=== PATIENT | female | born 1975 | race Caucasian/White ===

== ENCOUNTER 2017-05-11 23:41 | Inpatient (IN) | payer OTHER ==
[~2017-05-11] VITALS: Ht 175.3 cm; Wt 124.9 kg
[2017-05-11 23:39] VITALS: BP 178/112; PULSE 128; RESP 28; O2SAT 87
[2017-05-11] MEDS ORDERED: Propofol 10,000 mCg/mL 100 mL Inj ONE (23:50)
--- NOTE | 2017-05-11 23:56 | ED.REPORT ---
HPI-General Illness Date of Service May 11, 2017 ED Provider: Murali Moss MD A 41 year old female with a history of asthma and diabetes is brought to the ED via EMS due to respiratory distress. She was recently diagnosed with bronchitis and was placed on a course of antibiotics, which she completed. However the pt has been experiencing progressively worsening shortness of breath for three weeks, but this worsened acutely tonight. Paramedics found the pt tripoding with an oxygen saturation in the seventies, which was raised to 89% with albuterol treatment. Per , the pt has dilated, and lost over 100 pounds over the last several years. She has also been using her albuterol puffer liberally without a spacer in the last three weeks and resisting seeking medical care. Albuterol puffer in her possession in 2009. History is limited by pt condition. Nursing Notes Stated Complaint: SHORTNESS OF BREATH Chief Complaint: Respiratory Distress Nursing Notes Reviewed: Yes Allergies: Coded Allergies: Sulfa (Sulfonamide Antibiotics) (Verified Allergy, Unknown, 05/12/17) amoxicillin (Verified Allergy, Unknown, 05/12/17) clavulanic acid (Verified Allergy, Unknown, 05/12/17) General Time Seen by MD: 23:33 Chief Complaint Other (Respiratory distress) Hx Obtained From: Patient, EMS Arrived By: Ambulance Sudden in Onset?: No Recent Healthcare: No recent hospitalization Past Medical History Past Medical History asthma Reports: Diabetes mellitus Reports: Morbid Obesity Past Surgical History none reported Smoking History Never Smoker Social History Other Social History: Good social support, Ambulatory Status Independent Review of Systems Unable to Obtain ROS Patient condition Physical Exam Vital Signs Vital Signs Date Time Temp Pulse Resp B/P Pulse Ox O2 Delivery O2 Flow Rate FiO2 05/12/17 01:05 119 22 79/34 94 ET Tube 05/12/17 00:50 120 19 81/46 94 ET Tube 05/12/17 00:47 98 05/12/17 00:15 108 18 198/142 94 ET Tube 05/12/17 00:05 94 24 180/146 94 Room Air 05/11/17 23:39 37.3 128 28 178/112 87 BiPAP Initial VS: Reviewed General/Constitutional: Awake, Alert Head / Eyes: Atraumatic, Normocephalic, PERRL, EOMI ENT: Atraumatic, Airway patent, Mucous membranes moist Neck: Atraumatic, Supple, Full range of motion Respiratory / Chest: Atraumatic, Breath sounds = bilat tripoding with oxygen saturation in the mid seventies severe respiratory distress Cardiovascular: Heart rate NL, Regular rhythm, Heart sounds NL Abdomen: Atraumatic, Soft, Non-tender Back: Atraumatic, Full range of motion Upper Extremities Upper Extremity / MS: Atraumatic, Full range of motion Lower Extremity / Pelvis / MS: Atraumatic, Full range of motion Skin: Atraumatic, Color NL, No rash, Warm diaphoretic Neurologic: Oriented X3, Speech NL, No motor deficits, No sensory deficits Psychiatric: Affect NL Abnormal Mood/Affect: Positive: Anxious Interpretation & Diagnostics Lab Results Interpretation Result Diagram: 05/12/17 0335 05/12/17 0335 Test 05/12/17 00:09 Prothrombin Time 11.0sec (8.1-12.5) Prothromb Time International Ratio 1.03ratio Activated Partial Thromboplast Time 26.6sec (22.8-33.0) Lactic Acid Level 1.8mmol/L (0.4-2.0) Magnesium Level 1.8mg/dL (1.6-2.6) Troponin T 0.010ug/L (0.0-0.011) Pro-B-Type Natriuretic Peptide 1198pg/mL (0-130) Procalcitonin 0.02ng/mL (0.00-0.08) ECG Interpretation ECG Interpretation: sinus tachycardia with a rate of 103 poor R wave progression possible old anterior wave NE Time: 00:11 Interpreted by: ED physician X-Ray Chest Interpretation Chest Xray Interpretation: diffuse increased interstitial markings fluid in fissure suggestive of either fluid overload or viral pneumonitis Interpretation / Wet Read by: Wet read ED physician Procedures Intubation Intubation Procedure: 7.5 tube Time: 23:48 Procedure Performed by: ED physician, Allied health pract Consent / Setup / Site Prep: Consent from patient, Oxygen administered, Pulse oximeter applied, library monitor applied, Hand hygiene observed Patient Position: Head extended Blade / ET Tube / Route: Mac, ET tube cuffed, Route: oral Procedural Sedation/Analgesia: Sedation: Etomidate Neuromuscular Agent: Succinylcholine ET Confirmation: Direct visualization, BS equal, End tidal CO2 device, CXR, Rising O2 sat Secured / Marked: ET tube device, Tube marked at teeth Complications: None Post-Procedure: Condition improved, Tolerated procedure well, Patient stable Re-Eval/Medical Decision Med Decision/Clinical Course 41-year-old presents with a three week prodrome of her bronchitis being treated with albuterol and antibiotics. She is declined dramatically this evening with overt respiratory failure and hypoxemia. She was transported on CPAP but is still quite anxious and at maximal ventilatory effort, with pulse oxes still in the 80s at best. She required endotracheal intubation. I supervised the intubation in the emergency department, allowing the nuclear technologist from the field to do it under my direct supervision. Tube was placed and secured confirmed by end-tidal CO2 and by x-ray. Her white count is elevated, her x-ray shows increased interstitial markings more prominent on the right than the left, with a normal heart size. Possibility of an atypical pneumonitis versus CHF to be evaluated. Her troponin is initially negative. Her pro-B natruretic peptide is elevated but nonspecifically so. She is admitted out the ICU for further evaluation and management. ICU pneumonia protocol drugs begun with Levaquin and vancomycin and cefepime. Source of Hx: Family Time of Eval: 23:52 Re-Evaluation/Progress Note: Spoke with pt's and updated him on the situation. The need for admission is addressed. Time of Eval: 00:03 Patient Status: Condition improved Re-Evaluation/Progress Note: Pt rechecked, who is stable. Intubation is confirmed to be successful. Time of Eval: 01:21 Patient Status: Condition improved Re-Evaluation/Progress Note: Pt rechecked, whose blood pressure has improved. The diagnosis and plan for discharge are discussed. The pt's understands and agrees with the plan. All questions are addressed at this time. Consultation #1: Referral / Consult Name: Terry Cruz MD Consulted With: Hospitalist Call Returned at: 00:45 Information Resource Consultant: Agrees with eval, Agrees with plan, Accepts admit Note: Spoke with Dr. Cruz, hospitalist, regarding pt's case. Dr. Cruz agrees with the evaluation and agrees to admit the pt. Consultation #2: Call Returned at: 01:08 Information Resource Consultant: Agrees with eval, Agrees with plan Note: Spoke with Dr. Hemant Velarde, [facility], regarding pt's case. Dr. Morales agrees with the evaluation and agrees to accept pt's transfer if required. Counseled Regarding: Diagnosis, Lab results, Need for admission Discharge & Departure Primary Impression: Respiratory failure Chronicity: acute Respiratory failure complication: hypoxia Qualified Code : J96.01 - Acute respiratory failure with hypoxia Additional Impression: Acute interstitial pneumonitis Disposition: ADMITTED TO HOSPITAL Discharge Condition All VS Reviewed: Yes Condition: Stable Referrals: Augustin Zhang (PCP) Crit Care Except Billable Proc Time Spent: 30-74 minutes (forty-five minutes) Services Performed: Patient management by me, Time spent at bedside, Reviewing test results, Reviewing imaging, Discussing patient care, Documentation in record, Time with fam/surrogate Scribe Attestation Portions of this note were transcribed by Carmen Rubio. I, Dr. Moss personally performed the history, physical exam and medical decision-making; I reviewed and confirmed the accuracy of the information in the transcribed note. copies to: Augustin Zhang Christopher W MD May 11, 2017 23:56 CARMEN RUBIO May 12, 2017 00:02 Procedural Sedation/Analgesia: Sedation: Etomidate Neuromuscular Agent: Succinylcholine ET Confirmation: Direct visualization, BS equal, End tidal CO2 device, CXR, Rising O2 sat Secured / Marked: Tube marked at teeth Complications: None Post-Procedure: Condition improved, Tolerated procedure well, Patient stable Re-Eval/Medical Decision Source of Hx: Family Time of Eval: 23:52 Re-Evaluation/Progress Note: Spoke with pt's and updated him on the situation. The need for admission is addressed. Time of Eval: 00:03 Patient Status: Condition improved Re-Evaluation/Progress Note: Pt rechecked, who is stable. Intubation is confirmed to be successful. Time of Eval: 01:21 Patient Status: Condition improved Re-Evaluation/Progress Note: Pt rechecked, whose blood pressure has improved. The diagnosis and plan for discharge are discussed. The pt's understands and agrees with the plan. All questions are addressed at this time. Consultation #1: Referral / Consult Name: Terry Cruz MD Consulted With: Hospitalist Call Returned at: 00:45 Information Resource Consultant: Agrees with eval, Agrees with plan, Accepts admit Note: Spoke with Dr. Cruz, hospitalist, regarding pt's case. Dr. Cruz agrees with the evaluation and agrees to admit the pt. Consultation #2: Call Returned at: 01:08 Information Resource Consultant: Agrees with eval, Agrees with plan Note: Spoke with Dr. Hemant Velarde, [facility], regarding pt's case. Dr. Morales agrees with the evaluation and agrees to accept pt's transfer if required. Counseled Regarding: Diagnosis, Lab results, Need for admission Discharge & Departure Primary Impression: Respiratory failure Chronicity: acute Respiratory failure complication: hypoxia Qualified Code : J96.01 - Acute respiratory failure with hypoxia Disposition: ADMITTED TO HOSPITAL Discharge Condition All VS Reviewed: Yes Condition: Stable Referrals: Augustin Zhang (PCP) Crit Care Except Billable Proc Time Spent: 30-74 minutes Services Performed: Patient management by me, Time spent at bedside, Reviewing test results, Reviewing imaging, Discussing patient care, Documentation in record, Time with fam/surrogate Scribe Attestation Portions of this note were transcribed by Carmen Rubio. I, Dr. Moss personally performed the history, physical exam and medical decision-making; I reviewed and confirmed the accuracy of the information in the transcribed note. copies to: Augustin Zhang Christopher W MD May 11, 2017 23:56 CARMEN RUBIO May 12, 2017 00:02
[2017-05-12] VITALS (21 sets, daily range): BP systolic 79–198; BP diastolic 34–146; PULSE 94–120; RESP 18–28; O2SAT 94–100
[2017-05-12] MEDS ORDERED: Dexamethasone Inj 10 MG in 0.9% Sodium Chloride-Pha MIX 50 ML IV ONE ×2
[2017-05-12] MEDS ORDERED: Albuterol 2.5 mg/3 mL Inhalation Solution NEB ONE
[2017-05-12 00:13] LABS: BASOPHILS % (AUTO) 0.4 % (0-3); EOSINOPHILS % (AUTO) 2.2 % (0-5); MONOCYTES % (AUTO) 8.3 % (4-12); Mean Corpuscular Hemoglobin 31.7 pg (27.0-35.0); Mean Corpuscular Volume 88.8 fL (81-100); NEUTROPHILS % (AUTO) 61.4 % (40-74); Platelet Count 443 bil/L (150-400)
[2017-05-12] MEDS ORDERED: fentaNYL 2,500 mCg/250 mL IV Premix IV SCH (00:15)
[2017-05-12] MEDS ORDERED: levoFLOXacin Inj 750 MG in IV Premix 1 EACH IV ONE (00:20)
[2017-05-12] MEDS ORDERED: Vancomycin Dose per Pharmacist XX ONE (00:20)
[2017-05-12] MEDS ORDERED: Cefepime Inj 2,000 MG in Dextrose 5% Minibag Plus 100 ML IV ONE (00:20)
[2017-05-12] MEDS ORDERED: fentaNYL 2,500 mCg/250 mL 2,500 MCG in IV Premix 1 EACH IV SCH (00:25)
[2017-05-12] MEDS ORDERED: Vancomycin Inj 2,250 MG in 0.9% Sodium Chloride 500 ML IV ONE (00:25)
--- NOTE | 2017-05-12 00:31 | ABG ---
DateTimeAnalyzed 00:22:38 -_ pH ____7.211 - 7.350 7.450 pCO2 ___73.7__ -mmHg 35.0 45.0 pO2 133 -mmHg 69.0 116 HCO3- ___29.5__ -mmol/L 22.0 26.0 ABE ____0.7__ -mmol/L -2.0 2.0 tHb ___14.4__ -g/dL 12.0 18.0 O2Hb ___99.0__ -% COHb ____1.9__ -% 0.0 1.5 MetHb ____0.0__ -% 0.4 1.5 sO2 ___99.1__ -% FIO2 __100.0__ -% PEEP ____5.0__ -cmH2O Set_RR 18 -b/min Vt __530.0__ -L Drawn By AF - Date/Time Notified____ 00:31:00 -_ Spontaneous_RR 18 -b/min Oxygen Device 1 VENTILATOR - Notified By AF - Notified Whom ___DR. GUTHRIE - K+ ____3.8__ -mmol/L 3.5 5.0 tO2 ___19.9__ -Vol% OrderingPhysicianInitials CR - Guzman test _Positive -
[2017-05-12 00:39] LABS: TROPONIN T 0.01 ug/L (0.0-0.011)
[2017-05-12 00:49] LABS: INR 1.03 ratio
[2017-05-12 00:56] LABS: Magnesium 1.8 mg/dL (1.6-2.6)
[2017-05-12] MEDS: Propofol Inj 1,000,000 MCG in IV Premix 1 EACH IV SCH ×7 (01:01→20:11)
[2017-05-12] MEDS: fentaNYL 2,500 mCg/250 mL 2,500 MCG in IV Premix 1 EACH IV SCH (01:01)
[2017-05-12] MEDS ORDERED: Senna-Docusate 8.6-50 mg Tablet PO PRN (01:05)
[2017-05-12] MEDS ORDERED: Ondansetron 2 mg/mL 2 mL Inj IVPUSH PRN (01:05)
[2017-05-12] MEDS ORDERED: Alum-Mag Hydrox-Simeth 30 mL Suspension PO PRN (01:05)
[2017-05-12] MEDS ORDERED: Polyethylene Glycol (PEG) 17 Gm Powder PO PRN (01:05)
[2017-05-12] MEDS ORDERED: Albuterol 2.5 mg/3 mL Inhalation Solution NEB PRN (02:15)
[2017-05-12] MEDS ORDERED: KCl 40 mEq/D5W 500 mL 40 MEQ in IV Premix 1 EACH IV ONE (02:25)
[2017-05-12] MEDS: 0.9% Sodium Chloride 1,000 ML IV SCH (03:17)
[2017-05-12] MEDS: Chlorhexidine 0.12% 15 mL Oral Solution MT SCH ×5 (03:19→20:04)
--- NOTE | 2017-05-12 03:55 | PCM.HPMED ---
Subjective Date of Service May 12, 2017 Primary Provider: Admitting Physician: Primary Care Physician: Maulik Attending Physician: Admit Status: From the Emergency Department Chief Complaint: SHORTNESS OF BREATH History of Present Illness: Juany Xiong is a 41 year-old lady with a history of asthma, diabetes, hypertension and morbid obesity who presented to the ED via EMS in severe respiratory distress. She was subsequently intubated without incident in the emergency department and admitted to the CCU. History obtained via chart review and the patient's due to patient condition. reports upper respiratory symptoms for the past several weeks including: productive cough, fever, chills, and shortness of breath. Associated symptoms include general malaise, decreased appetite, nausea, vomiting and diarrhea. Additionally, he states that he was treated for a pneumonia and recently finished antibiotics. He states that he encourage the patient to go to the doctor but she resisted. It is somewhat unclear where she was eventually evaluated but he states that she also completed a course of antibiotics without relief. The patient's states that her asthma is well controlled and she has never been hospitalized for her asthma. He states that she does not smoke and occasionally drinks alcohol. He reports a history of hypertension and diabetes currently diet control. The patient reportedly lost approximately 100lbs recently and that her blood pressure improved with this. Because her breathing worsened significantly in the last 24-48hours he called the paramedics. On arrival she was found tripoding with an oxygen saturation in the seventies, which was raised to 89% with albuterol. In the ED she was in severe respiratory distress as well as tachycardic and hypertensive. ECG showed sinus tachycardia with a rate of 103, poor R wave progression and possible old anterior RI. Chest xray showed diffuse increased interstitial markings, findings suggestive of fluid overload or viral pneumonitis. Labs were significant for a leukocytosis (wbc 17.0) without shift, hyperglycemia , and an elevated proBNP (1198). Lactic acid and troponin were within normal limits. ABG showed respiratory acidosis with a pH of 7.211, pCO2 73.7, pO2 133, HCO3 29.5. She was given 10mg IV dexamethasone and nebulized albuterol as well as doses of levofloxacin and cefepime. Review of Systems: Unable to perform complete review of systems secondary to patient condition. Allergies Coded Allergies: Sulfa (Sulfonamide Antibiotics) (Verified Allergy, Unknown, 05/12/17) amoxicillin (Verified Allergy, Unknown, 05/12/17) clavulanic acid (Verified Allergy, Unknown, 05/12/17) Home Medications As per most recent record patient is not taking medications. PMH Asthma Diabetes mellitus Morbid obesity Hypertension Kidney stone Rosacea Surgical History ORIF- Left ankle fracture, 1995 Family History Mother- Hypertension, Diabetes Father- Schizophrenia Social History Hx Alcohol Use: Yes (Social) Hx Substance Use: No Hx Tobacco Use: No Smoking Status: Never Smoker Living Arrangement: with Family Additional Information Lives locally with her and there two children. Exam Vital Signs Vital Sign - Last Date Time Temp Pulse Resp B/P Pulse Ox O2 Delivery O2 Flow Rate FiO2 05/12/17 00:47 98 05/11/17 23:39 37.3 128 28 178/112 BiPAP Exam General: Obese woman, intubated and sedated in the ICU. ETT in place. HEENT: Normocephalic, atraumatic.PERRL, no scleral icterus. Mucous membranes pink/moist. Neck: No jugular venous distension, bruits or thyromegaly. Cardiovascular: Regular rate and rhythm with no murmurs Pulmonary: Mechanically ventilated, equal air entry b/l. Coarse rhonchi throughout anterior lung yuen, no wheezing or crackles. Abdomen: Soft, obese, nondistended, does not appear tender although patient is sedated. No masses. Extremities: Warm, trace pitting edema ankles b/l. Pulses equal/intact. Skin: Damp, normal turgor and texture. No rashes or ulcerations. Neurological: Unable to asses. Sedated. No known gait impairment. Lab and Diagnostics Labs Laboratory Tests Test 05/12/17 00:09 White Blood Count 17.0th/mm3 (3.8-10.1) Red Blood Count 4.38mil/mm3 (3.90-5.20) Hemoglobin 13.9g/dL (12.0-15.6) Hematocrit 38.9% (35.0-46.0) Mean Corpuscular Volume 88.8fL (81-100) Mean Corpuscular Hemoglobin 31.7pg (27.0-35.0) Mean Corpuscular Hemoglobin Concent 35.7% (32.0-37.0) Red Cell Distribution Width 15.4% (12.3-15.4) Platelet Count 443bil/L (150-400) Neutrophils (%) (Auto) 61.4% (40-74) Lymphocytes (%) (Auto) 26.8% (14-46) Monocytes (%) (Auto) 8.3% (4-12) Eosinophils (%) (Auto) 2.2% (0-5) Basophils (%) (Auto) 0.4% (0-3) Hematology Comments Wbc Prothrombin Time 11.0sec (8.1-12.5) Prothromb Time International Ratio 1.03ratio Activated Partial Thromboplast Time 26.6sec (22.8-33.0) Sodium Level 141mEq/L (134-144) Potassium Level 3.4mEq/L (3.5-5.2) Chloride Level 105mEq/L (97-108) Carbon Dioxide Level 22mmol/L (18-29) Blood Urea Nitrogen 14mg/dL (6-24) Creatinine 0.54mg/dL (0.57-1.00) Estimat Glomerular Filtration Rate 178mL/min (>59) Glucose Level 177mg/dL (60-99) Lactic Acid Level 1.8mmol/L (0.4-2.0) Calcium Level 7.7mg/dL (8.5-10.1) Magnesium Level 1.8mg/dL (1.6-2.6) Total Bilirubin 0.4mg/dL (0.0-1.2) Aspartate Amino Transf (AST/SGOT) 15U/L (0-50) Alanine Aminotransferase (ALT/SGPT) 11U/L (0-32) Alkaline Phosphatase 59U/L (25-150) Troponin T 0.010ug/L (0.0-0.011) Pro-B-Type Natriuretic Peptide 1198pg/mL (0-130) Total Protein 7.4g/dL (6.4-8.4) Albumin 2.8g/dL (3.4-5.0) Procalcitonin 0.02ng/mL (0.00-0.08) Microbiology 05/12/17 Blood Culture- pending Result Diagram: 05/12/17 0009 05/12/17 0009 Additional Diagnostics: DateTimeAnalyzed 00:22:38 -_ pH ____7.211 - 7.350 7.450 pCO2 ___73.7__ -mmHg 35.0 45.0 pO2 133 -mmHg 69.0 116 HCO3- ___29.5__ -mmol/L 22.0 26.0 ABE ____0.7__ -mmol/L -2.0 2.0 tHb ___14.4__ -g/dL 12.0 18.0 O2Hb ___99.0__ -% COHb ____1.9__ -% 0.0 1.5 MetHb ____0.0__ -% 0.4 1.5 sO2 ___99.1__ -% FIO2 __100.0__ -% PEEP ____5.0__ -cmH2O Set_RR 18 -b/min Vt __530.0__ -L Drawn By AF - Date/Time Notified____ 00:31:00 -_ Spontaneous_RR 18 -b/min Oxygen Device 1 VENTILATOR - Notified By AF - Notified Whom ___DR. [place] - K+ ____3.8__ -mmol/L 3.5 5.0 tO2 ___19.9__ -Vol% OrderingPhysicianInitials CR - Guzman test _Positive - Assessment & Plan 41 year-old female with a history of asthma, diabetes, hypertension and morbid obesity who presented to the ED via EMS in severe respiratory distress. Subsequently intubated without incident in the emergency department and admitted to the ICU for acute respiratory failure secondary to possible community acquired pneumonia and/or asthma exacerbation. Acute hypoxic respiratory failure. Present on admission. Active. -Likely secondary to community acquired pneumonia (viral vs bacterial), and/or asthma exacerbation. Patient's asthma reportedly well controlled. Increased albuterol use in the past few weeks. -Leukocytosis 17.0, procalcitonin 0.02; ABG and CXR as above -Received 10mg IV dexamethasone , cefepime, levaquin & vancomycin in the ED. -Cultures, urine antigens, resp viral PCR- pending -Continue Cefepime, Vanco (MRSA screen pending) -DuoNeb q4h, albuterol neb q2h -Solu-Medrol IV 125mg Q8h -Monitor CBC, procalcitonin -Repeat procalcitonin -Sedation: Fentanyl, propofol -Current vent settings: PRVC, FiO2 , PEEP , RR , TV -Daily ABGs -Echo ordered for proBNP 1198/possible pulmonary edema on CXR. Possible community acquired pneumonia. Present on admission. Active. -Viral vs bacterial in setting of probable asthma exacerbation. -Management and supportive care as above. History of asthma. Present on admission. Active. -Reportedly well controlled with albuterol. No prior hospitalizations or severe exacerbations. -Increased frequency in albuterol for 3wks -Management as above History of Hypertension. Present on admission. Active. -Patient's BP reportedly improved with weight loss, ongoing diet/exercise. Not on antihypertensive medication. -BP 178/112 at presentation. Now slightly hypotensive to normotensive. -Continuous cardiac, BP monitoring History of diabetes. Present on admission. Active. -Diet controlled. -Serum glucose 177 -HbA1c pending -Correctional scale insulin. Morbid obesity. Present on admission. Active. -Reportedly lost 100lbs recently -BMI 41.4 -Recommend close outpatient followup -Heart healthy diet when taking PO. PRN: Acetaminophen-fever/headache/mild/moderate pain Antiemetics, as needed Bowel regimen, as needed. Disposition: Patient admitted under inpatient status with expected length of stay > 2 midnights for severity of present symptoms, complexities of treatment plan and risk for adverse event. Pain Evaluation: Adequate Pain Control GI Prophylaxis: H2 emelyn VTE Prophylaxis: Sub-Q Heparin (Unfractionated) Resuscitation Status: CPR: Attempt Resuscitation Time spent 1 hour critical care time spend Attending Statement The patient was seen and examined together with Dr. Charles on 05/12 and I agree with the history, exam and plan as outlined in the note above. Veronica Charles DO May 12, 2017 01:01 Terry Cruz MD May 12, 2017 05:01
[2017-05-12] MEDS: Albuterol-Ipratropium 3 mL Inhalation Solution NEB SCH ×5 (03:58→20:14)
--- NOTE | 2017-05-12 04:07 | NUR ---
Admit note: Pt arrived to room 2020 per cart from ED accompanied by RN and RT. Pt is sedated and being ventilated with BVM. Pt was moved over to bed with use of slide board and assist x5. Pt was on propofol 15mcg/kg/min and fentanyl 50mcg/hr. Pt becomes very agitated and restless pt received bolus of propofol and rate increased to 30mcg/kg/min and calms down. Pt also receiving vanco. Monitor applied shows sinus tach and spo2 98%. Pt was connected to ventilator with Fio2 80%, peep=5, BS=525, at a rate of 22. Pt had lamb in place with stephanie colored urine and OG in place connected to low continuous suction. Dr. Charles the CCU resident her to see pt new orders were received.
[2017-05-12 04:13] LABS: BASOPHILS % (AUTO) 0.3 % (0-3); EOSINOPHILS % (AUTO) 0.3 % (0-5); MONOCYTES % (AUTO) 5.7 % (4-12); Mean Corpuscular Hemoglobin 29.4 pg (27.0-35.0); Mean Corpuscular Volume 87.6 fL (81-100); NEUTROPHILS % (AUTO) 88.6 % (40-74); Platelet Count 329 bil/L (150-400)
--- NOTE | 2017-05-12 04:14 | ABG ---
DateTimeAnalyzed 04:08:00 -_ pH ____7.313 - 7.350 7.450 pCO2 ___44.9__ -mmHg 35.0 45.0 pO2 ___95.1__ -mmHg 69.0 116 HCO3- ___22.1__ -mmol/L 22.0 26.0 ABE ___-3.6__ -mmol/L -2.0 2.0 tHb ___12.7__ -g/dL 12.0 18.0 O2Hb ___94.7__ -% COHb ____0.8__ -% 0.0 1.5 MetHb ____0.8__ -% 0.4 1.5 sO2 ___96.2__ -% FIO2 ___80.0__ -% PEEP ____5.0__ -cmH2O Set_RR ___22.0__ -b/min Vt __530.0__ -L Drawn By AF - Date/Time Notified____ 04:13:00 -_ Spontaneous_RR ___22.0__ -b/min Oxygen Device 1 VENTILATOR - B 758 -mmHg tO2 ___17.0__ -Vol% OrderingPhysicianInitials CR - Guzman test _Positive -
[2017-05-12] MEDS ORDERED: Dextrose 10% 250 ML IV PRN (06:00)
--- NOTE | 2017-05-12 07:51 | DRSVH ---
PROCEDURE: X-RAY CHEST ONE VIEW, PORTABLE ([id number]) INDICATIONS: intubation TECHNIQUE: One view of the chest was acquired. COMPARISON: None. FINDINGS: Surgical changes and devices: Endotracheal tube is present, tip 7.9 cm above the sulma.. Lungs and pleura: No pleural effusions or pneumothorax. Lungs show diffuse reticular nodular inters titial infiltrate, right greater than left. Focal subpleural consolidation at the lateral margin of t he minor fissure. Mediastinum: Mediastinal contours appear normal. Heart size is normal. Bones and chest wall: No suspicious bony lesions. Overlying soft tissues appear unremarkable. IMPRESSION: 1. Endotracheal tube position per above. 2. Diffuse interstitial infiltrate, right greater than left, suspect for pneumonia which could be aty pical or viral. Dictated by: Johnny Rodriguez M.D. on 05/12/2017 at 7:47 Approved by: Johnny Rodriguez M.D. on 05/12/2017 at 7:50
[2017-05-12] MEDS: Insulin Human REGular 300 Unit/3 mL Inj SUBQ SCH ×2 (08:16→14:03)
[2017-05-12] MEDS: Heparin 5,000 Unit/mL Inj SUBQ SCH ×2 (08:16→16:00)
[2017-05-12] MEDS: Cefepime Inj 2,000 MG in Dextrose 5% Minibag Plus 100 ML IV SCH ×2 (08:16→20:05)
[2017-05-12] MEDS: MethylprednisoLONE Sodium Succinate 62.5 mg/mL 2 mL Inj IVPUSH SCH ×2 (08:16→16:00)
[2017-05-12] MEDS: Famotidine Inj 20 MG in IV Premix 1 EACH IV SCH ×2 (08:47→20:04)
[2017-05-12] MEDS: Insulin Human NPH 100 Unit/mL 3 mL Inj SUBQ SCH ×2 (09:21→16:00)
--- NOTE | 2017-05-12 10:26 | NUR ---
NUTRITION ASSESSMENT Assess: 41 YO F admitted to CCU with respiratory failure, asthma, and pneumonia requiring intubation. Plan to start TF today per verbal order Dr. Bunn. Per CCU rounds, PS trial planned today. PMHX: Asthma, Type 2 DM, morbid obesity, HTN, kidney stone. DIET: NPO. LABS: K+ 3.4, Glu 249, Ca 8.0, Alb 2.8 MEDICATIONS: Reviewed. Propofol 22 ml/hr providing 580 kcal/day. GI: No BM noted. SKIN: No issues noted. ANTHROPOMETRICS: Wt: 122.2 kg, BMI 39.8 kg/m2, Admit wt: 122.2 kg, IBW: 65.9 kg. ESTIMATED NEEDS: BMI/VENT Calories: 5193-3064 kcal/day (20-22 kcal/kg BW) Protein: 99-119 g/day (1.5-1.8 g/kg IBW) Fluids: 2375-8478 ml/day (1 cc/kcal) NUTRITION DIAGNOSIS: 1) Inadequate oral intake related to decreased ability to consume sufficient energy as evidenced to NPO/Vent status. INTERVENTION: 1) Recommend enteral feedings of Jevity 1.5 starting at 10 ml/hr, once tolerance established, advance 10 ml q 6 hr to goal of 60 ml/hr. At goal TF will provide 1980 kcal (TF+Propofol = 2560 kcal), 84 g protein, 1003 ml free fluid; meeting 100% calorie, 85% of protein needs. Per Dr. Bunn, fluid flushes to meet pt's fluid needs as IV fluids to be discontinued. Fluid flushes of 250 ml q 4 hr to provide 2503 ml H20, sufficient to meet pt's fluid needs. Signed orders to be placed in chart. 2) Once tolerance established, consider adding Prosource liquid protein to better meet pt's protein needs. Recommend 1 packet of Prosource BID to provide a total of 106 g protein; meeting 100% of protein needs. 3) Adjust TF goal rate based on daily propofol rate. 4) If blood sugars are difficult to control, consider switching to diabetic enteral formula. MONITOR/EVALUATE: NPO/Vent status, labs, TF tolerance/advance, fluid status, POC, GI/nutrition status. Follow per high nutrition risk guidelines. Addendum: 05/13/17 at [address] TF started, currently at 10 ml/hr.
--- NOTE | 2017-05-12 11:05 | DRSVH ---
PROCEDURE: X-RAY CHEST ONE VIEW, PORTABLE ([id number]) INDICATIONS: ETT placement TECHNIQUE: One view of the chest was acquired. COMPARISON: [facility], CR, XR CHEST 1VW (PORTABLE), 05/11/2017, 23:43. FINDINGS: Surgical changes and devices: A central line is not currently seen, and the nasogastric tube coils in the gastric cardia, with the side port well below the EG junction. The endotracheal tube has been a dvanced with reference to the study from one day ago, but its tip now is 1.9 cm from the sulma and c ould be withdrawn approximately 3 cm. Lungs and pleura: No pleural effusions or pneumothorax. Lungs are abnormal, with bibasilar subsegme ntal and segmental alveolar opacification, consistent with pneumonia or aspiration.. Mediastinum: Mediastinal contours appear normal. Heart size is normal. Bones and chest wall: No suspicious bony lesions. Overlying soft tissues appear unremarkable. IMPRESSION: Endotracheal tube tip has been advanced but now is within 1.9 cm of the sulma. Please c onsider withdrawing it 3 cm. New finding of bilateral basilar pneumonia as discussed. Aspiration al so could produce this appearance. Dictated by: Preston Kelly M.D. on 05/12/2017 at 11:00 Approved by: Preston Kelly M.D. on 05/12/2017 at 11:04
[2017-05-12] MEDS: Azithromycin Inj 500 MG in Dextrose 5% w/Vial Mate 250 ML IV SCH (11:40)
--- NOTE | 2017-05-12 11:47 | DRSVH ---
[facility] [address] [place] [address] Echocardiogram Report Name: INGRID SOLORIO MStudy Date: 0 05/12/2017 Height: 69 in Hospital Exam Location: [facility] Weight: 269 lb Gender: Female BSA: 2.3 m2 : 1975 Age: 41 yrs BP: 127/70 mmHg Reason For Study: Respiratory FAILURE, ACUTE Ordering Physician: Arie Hummelist Performed By: Basilio Carranza Referring Physician: NIA FINCH Interpretation Summary There is mild concentric left ventricular hypertrophy. The ejection fraction is estimated to be 65-70%. The right ventricle is normal in size, thickness and function. Flattened septum is consistent with RV pressure overload. Right ventricular systolic pressure is estimated to be 32 mmHg plus the clinically estimated CVP which cannot be estimated on this exam. The left atrial size is normal. Right atrial size is normal. There is no significant valvular heart disease. The ascending aorta is mildly enlarged. There is no pericardial effusion. Procedure: A two-dimensional transthoracic echocardiogram with color flow and Doppler was performed. The study quality was technically good. There is no prior echocardiogram noted for this patient. The patient was in sinus tachycardia with heart rates between 102-116 bpm during the exam. Left Ventricle: The left ventricle is normal in size. There is mild concentric left ventricular hypertrophy. The ejection fraction is estimated to be 65-70%. Flattened septum is consistent with RV pressure overload. Right Ventricle: The right ventricle is normal in size, thickness and function. Atria: The left atrial size is normal. Right atrial size is normal. The interatrial septum is intact with no evidence for an atrial septal defect. Mitral Valve: The mitral valve is normal. There is no mitral regurgitation noted. Aortic Valve: The aortic valve is normal in structure and function. No aortic regurgitation is present. Tricuspid Valve: The tricuspid valve is normal. There is trace tricuspid regurgitation. Right ventricular systolic pressure is estimated to be 32 mmHg plus the clinically estimated CVP which cannot be estimated on this exam. Pulmonic Valve: The pulmonic valve is not well seen, but is grossly normal. There is a trace or physiologic amount of pulmonic regurgitation. There is no significant valvular heart disease. Great Vessels: The aortic root is normal size. The ascending aorta is mildly enlarged. The pulmonary artery is normal size. Inspiratory collapse cannot be assessed because of mechanical ventilation, thus CVP cannot be estimated.. Pericardium/ Pleura There is no pericardial effusion. There is no pleural effusion. MMode/2D Measurements & Calculations LVIDd: 4.8 cm RA long axis LVOT diam: 2.1 cm LVIDs: 3.4 cm LA A2 area: 20.4 cm AoV Opening FS: 29.1 % LA A4 area: 19.3 cm RA area EPSS: 0.52 cm LA length (vol) Ao root diam IVSd: 1.3 cm : 14.7 cm LVPWd: 1.1 cm LA vol: 63.8 ml RA vol asc Aorta Diam LA vol index : 37.5 ml RA Ao Arch Diam (Prox : 27.2 ml/m2 : 16.0 mm2 Trans): 2.7 cm LV joy. diameter/BSA LV sys. diameter/BSA RVD1 (basal) TAPSE: 2.7 cm (cm/m^2): 2.1 (cm/m^2): 1.5 Doppler Measurements & Calculations Ao V2 max MV E max dion MV E/A: 0.59 TR max dion : 229.3 cm/sec : 58.8 cm/sec Med Peak E' Dion : 283.2 cm/sec Ao max P.0 mmHg MV A max dion TR max PG Ao mean P.1 mmHg : 98.9 cm/sec E/E' med: 10.7 : 32.1 mmHg LVOT Max Dion Lat Peak E' Dion PA V2 max : 153.0 cm/sec : 125.6 cm/sec E/E' lat: 7.6 PA mean PG DANIEL(I,D): 2.5 cm E/e' average: 9.2 : 3.5 mmHg sev ratio: 0.73 MV dec time: 0.13 sec Ao V2 mean LV V1 max PG PA V2 mean : 160.5 cm/sec : 90.1 cm/sec Ao V2 VTI: 32.2 cmLV V1 VTI: 23.7 cmPA pr(Accel) DANIEL(V,D): 2.3 cm2 : 49.4 mmHg DANIEL indexed to BSA (cm^2/m^2): 1.1 Reading Physician:MURIEL
--- NOTE | 2017-05-12 15:04 | PCM.CHPMED ---
Subjective Date of Service: May 12, 2017 Provider requesting consult: Sandro Xiong MD Primary Physician: Admitting Physician: Terry Cruz MD Primary Care Physician: Nopcarlos Attending Physician: Sandro Xiong MD Chief Complaint: Chief Complaint: Shortness of breath History of Present Illness: ICU Consult Note Patient is a 41 year old female with history of asthma, diabetes, hypertension and morbid obesity who presented with worsening respiratory distress. She had initially been complaining of upper respiratory symptoms for the past 3 weeks including productive cough, fever, chills, and shortness of breath, as well as malaise, anorexia, N/V/D. She was seen as an outpatient and treated with a course of antibiotics, which she completed with no effect. She also reported that she had been using increasing amounts of her albuterol inhaler. Her dyspnea acutely worsened and she was brought to the hospital and found in a tripod position with worsening respiratory status, and was subsequently intubated. Per her , she had never been hospitalized for her asthma in the past and her asthma was usually well-controlled up until 3 weeks ago. She had recently lost about 100 lbs, seemingly intentionally with diet control. She is a never smoker. She was intermittently agitated overnight, requiring boluses of propofol and an increase in the infusion rate. Today she remains sedated and intubated and is unable to provide further history. Review of Systems: Comprehensive review of systems conducted and was negative except for the pertinent positives listed above. PMH Past Medical History Asthma Diabetes mellitus Morbid obesity Hypertension Kidney stone Rosacea Bedside Blood Glucose: 197 Surgical History ORIF- Left ankle fracture, 1995 Allergies: Coded Allergies: Sulfa (Sulfonamide Antibiotics) (Verified Allergy, Unknown, 05/12/17) amoxicillin (Verified Allergy, Unknown, 05/12/17) clavulanic acid (Verified Allergy, Unknown, 05/12/17) Family History Family History Mother- Hypertension, Diabetes Father- Schizophrenia Social History Hx Alcohol Use: Yes (Social)Hx Substance Use: NoHx Tobacco Use: No Smoking Status: Never Smoker Living Arrangement: with Family Exam Vital Signs Vital Sign - Last Date Time Temp Pulse Resp B/P Pulse Ox O2 Delivery O2 Flow Rate FiO2 05/12/17 10:45 103 114/68 97 70 05/12/17 08:00 38.1 22 Mechanical Ventilator Intake and Output 8/05/11/17 05/12/17 Cumulative From/Thru 15:00 23:00 07:00 05/11/17 23:39 - 05/12/17 06:18 Intake Total 1228 ml 1228 ml Output Total 450 ml 450 ml Balance 778 ml 778 ml Intake IV Total 1228 ml 1228 ml Output Urine Total 300 ml 300 ml Gastric Drainage Total 150 ml 150 ml Additional Information: General: Sedated and intubated. No acute distress. Not arousable. Head: Normocephalic, atraumatic. External ears normal. Eyes: PERRLA, EOMI. Anicteric sclerae. Mouth: Mouth normal, Mucous membranes moist/pink Neck: Neck supple with full range of motion. Chest& Lungs: Coarse breath sounds bilaterally Cardiovascular: Tachycardic, regular rhythm, Normal S1, Normal S2, No murmurs/ rubs/gallops Abdomen: Non-tender, Non-distended, No masses, Normoactive bowel tones, Soft Musculoskeletal: Normal range of motion Extremities: No cyanosis/clubbing/edema bilaterally Neurological: Sedated and intubated. Vent Settings FiO2: 80 PEEP set: 10 PEEP magalis: 15 RR: 22 VT: 530 Peak: 41 Plat: 28 Lab and Diagnostics Result Diagram: 05/12/1733405/12/17 033 Assessment & Plan Assessment Patient is a 41 year old female with history of asthma, diabetes, hypertension and morbid obesity who presented with worsening respiratory distress. Admitted for acute hypoxic hypercapnic respiratory failure secondary to asthma exacerbation and possible pneumonia. Acute hypoxic and hypercapnic respiratory failure. - Secondary to asthma exacerbation and possible community acquired pneumonia. Possible element of obesity hypoventilation. Initial ABG showed pH 7.21, pCO2 73.7, pO2 133, bicarb 29.5 after intubation. Was satting 87% on BiPAP prior to intubation. Vent shows mild auto-PEEP and increased flow pressures, indicative of obstructive process. Will consider adjusting ventilation if obstructive physiology does not improve with treatment of underlying asthma. - Continue to manage on mechanical ventilation. Did poorly on pressure support trial today. - Sedation with fentanyl and propofol. Wean as tolerated. Acute asthma exacerbation. - Likely secondary to CAP. Pt has no prior history of hospitalization for asthma. Previously well controlled on albuterol. - Solu Medrol 125 mg q8h - DuoNeb q4h, albuterol neb q2h - Solu-Medrol IV 125mg Q8h Community acquired pneumonia, acute. - Pt previously complained of fevers, chills, productive cough. CXR showed diffuse interstitial infiltrate, right greater than left. Previously treated unsuccessfully with outpatient antibiotics. MRSA screen negative. Viral PCR negative. - Sputum and blood cultures pending - Strep pneumo and Legionella urine antigens pending - Continue cefepime. Switched levofloxacin to azithromycin. - Stopping IV fluids - will start tube feeds Pulmonary hypertension, unknown acuity - Echo shows LVEF 65-70%, mild concentric LVH, and flattened septum consistent with RV pressure overload. Likely pulmonary hypertension, secondary to chronic obesity hypoventilation/BETO. - Consider sleep study outpatient Problems: Pain Evaluation: Adequate Pain Control GI Prophylaxis: H2 emelyn VTE Prophylaxis: Sub-Q Heparin (Unfractionated) VTE Mechanical Devices: Intermittant Pneumatic CD Resuscitation Status: CPR: Attempt Resuscitation Attending Statement I have seen and examined this patient with the resident physician. Vital signs , labs, imaging have been reviewed. I agree with the assessment and plan above. Please refer to my separately dictated progress note for any modifications to above. Julia Bunn M.D. Pulmonary and Critical Care medicine Pager [phone] Abiodun Duron May 12, 2017 12:00 Julia Bunn MD May 12, 2017 16:33
--- NOTE | 2017-05-12 15:18 | NUR ---
Social Work: Initial Assessment/Multidisciplinary Rounds D: Per EMR review, pt is a 41 year old female admitted for respiratory failure, asthma. Pt is [facility], pt has no supplement, LTC or VA benefits. Pt does not have a PCP. NOK is Gray Xiong, spouse, . Pt has not completed her advanced directives. Readmit score not entered at this time. Pt discussed in multidisciplinary rounds. Pt is vented in CCU. Pt will likely require mech vent for several more days. Discharge needs unknown at this time. OFFICE RECEPTIONIST met with the patient's spouse at bedside. Sw role explained, contact information and discharge planning checklist provided. Pt lives at home with her spouse and adolescent children. Pt was previously I with all self-care at baseline. Pt is a [id number] mom and drives. Pt has never require HH or skilled rehab. Pt's spouse is interested in taking FMLA. He works as a facilities mechanical design engineer with [employer]. OFFICE RECEPTIONIST provided him with the paperwork. He will complete his portion and will need the pt's attending provider to compete the physician statement. OFFICE RECEPTIONIST will inform the provider of this and provide him with the paperwork to be completed. Spouse is appreciative of this. A: Pt who is I at baseline. P: Evolving; OFFICE RECEPTIONIST to continue to follow to assist with safe discharge planning. OFFICE RECEPTIONIST will give the attending provider the necessary FMLA paperwork to be completed for the spouse. CARLOS Sy Addendum: 05/12/17 at 1532 by JOVON STARKS Amended: Links added.
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
--- NOTE | 2017-05-12 17:11 | NUR ---
Remains on vent support, Fi02 decreased from 80% this morning to 60% this evening. Minimal ETT secretions, infrequent bronchospastic cough since sedation increased. Appears comfortable and in no distress. OGT to suction this morning, draining orange fluid with chunks that intermittently require flushing to maintain patency. TFs started at trickle. UOP 650ml/12 hrs via almb cath. No stool. SR/ST on tele, no ectopy noted. BP stable. Febrile. here earlier, updated by MDs, Marine Designer supporting.
--- NOTE | 2017-05-12 20:22 | CONS ---
[address] [address] CONSULTATION REPORT PATIENT: INGRID XIONG : 1975 MR#: [id number] ADMIT: 05/12/2017 JOB ID: [id number] DATE OF SERVICE: 05/12/2017 PULMONARY CRITICAL CARE CONSULTATION NOTE: The patient is a 41-year-old woman seen in consultation at request of Dr. Thai Xiong for acute respiratory failure. The patient was seen and evaluated with resident physician, Abiodun Duron. Please refer to his separate detailed note for additional information. HISTORY OF PRESENT ILLNESS: Briefly, the patient is a 41-year-old woman with morbid obesity, diabetes and hypertension as well as known asthma who was brought in to the hospital yesterday by her with respiratory distress and hypoxemia. Since the patient is currently intubated, all of the history is obtained from review of medical records. History indicates that she had been sick for many weeks and apparently was treated with an outpatient course of antibiotics which did not help much. It is not clear to me that she got steroids. Regardless when she arrived yesterday, she was hypercarbic and acidemic and severely hypoxic initially in the 70s and improved somewhat to the 80s with a nebulizer. She was subsequently intubated and has been on the ventilator overnight. Past medical history, social history, family history, review of systems could not be obtained because the patient is intubated. A summary of this is per Dr. Duron's separate detailed note. PHYSICAL EXAMINATION: Vital signs reviewed. She is currently on the ventilator with 80% FiO2 and PEEP of 5 cm. General: During a pressure support trial, she had her eyes open and she was in respiratory distress with tachypnea in the 30s. Chest: Coarse bilateral breath sounds. Abdomen: Soft, nontender. Extremities: No cyanosis, clubbing, edema. LABORATORIES: Reviewed. IMAGING: Also reviewed and shows bilateral prominent interstitial opacities. Chest x-ray from this morning shows right lower lobe infiltrate. Arterial blood gas this morning shows pH of 7.31, pCO2 44, pO2 of 95, and bicarb of 22. ASSESSMENT AND RECOMMENDATIONS: 1. Acute hypercarbic hypoxic respiratory failure. 2. Suspected asthma exacerbation. 3. Morbid obesity. 4. Right lower lobe pneumonitis. This 41-year-old woman with morbid obesity, BMI around 40 and history of asthma, diabetes and hypertension is presenting with acute hypoxic hypercarbic respiratory failure requiring mechanical ventilation. The history would be most consistent with an asthma exacerbation and she is certainly acting like one currently. She is currently on Solu-Medrol 125 mg IV q.8, scheduled nebs. She is also on antibiotics-cefepime and levofloxacin. Not sure that we need levofloxacin, and we switched from that to azithromycin for now. Her procalcitonin is negative at 0.02 at midnight, but the chest x-ray now shows a new right lower lobe infiltrate which was not previously seen. I would suggest repeating her procalcitonin tomorrow morning and then discontinuing antibiotics if that is negative as well. She also has a respiratory viral PCR panel pending. We attempted a pressure support trial today, but she did very poorly and we stopped this after a few minutes. I increased her PEEP to 10 since her FiO2 is extremely low. She is on appropriate DVT and GI prophylaxis. CRITICAL CARE TIME: 60 minutes.
[2017-05-12] MEDS ORDERED: Insulin GLARgine 100 Unit/mL Syringe SUBQ SCH (21:00)
--- NOTE | 2017-05-12 22:02 | NUR ---
Transported PT to [place] on transport vent. Pt's vital signs remained stable throughout and was placed back on servo with no immediate issues, will continue to monitor.
--- NOTE | 2017-05-12 22:13 | ABG ---
DateTimeAnalyzed 22:07:00 -_ pH ____7.462 - 7.350 7.450 pCO2 ___33.7__ -mmHg 35.0 45.0 pO2 ___79.0__ -mmHg 69.0 116 HCO3- ___23.8__ -mmol/L 22.0 26.0 ABE ____0.9__ -mmol/L -2.0 2.0 tHb ___13.0__ -g/dL 12.0 18.0 O2Hb ___94.8__ -% COHb ____0.7__ -% 0.0 1.5 MetHb ____0.7__ -% 0.4 1.5 sO2 ___96.1__ -% FIO2 ___60.0__ -% PEEP ___10.0__ -cmH2O Set_RR ___22.0__ -b/min Vt __530.0__ -L Drawn By AF - Date/Time Notified____ 22:12:00 -_ Spontaneous_RR ___30.0__ -b/min Oxygen Device 1 VENTILATOR - B 755 -mmHg tO2 ___17.4__ -Vol% Guzman test _Positive -
[2017-05-12] MEDS ORDERED: levoFLOXacin Inj 750 MG in IV Premix 1 EACH IV SCH (23:30)
[2017-05-13] VITALS (14 sets, daily range): BP systolic 115–157; BP diastolic 58–86; PULSE 84–108; RESP 17–26; O2SAT 95–97
[2017-05-13] MEDS: Albuterol-Ipratropium 3 mL Inhalation Solution NEB SCH ×6 (00:11→20:54)
[2017-05-13] MEDS: Heparin 5,000 Unit/mL Inj SUBQ SCH ×3 (00:30→16:15)
[2017-05-13] MEDS: Chlorhexidine 0.12% 15 mL Oral Solution MT SCH ×6 (00:30→19:49)
[2017-05-13] MEDS: MethylprednisoLONE Sodium Succinate 62.5 mg/mL 2 mL Inj IVPUSH SCH ×3 (00:30→16:15)
[2017-05-13] MEDS: Propofol Inj 1,000,000 MCG in IV Premix 1 EACH IV SCH ×9 (00:31→18:55)
[2017-05-13] MEDS: Insulin Human NPH 100 Unit/mL 3 mL Inj SUBQ SCH ×3 (00:32→16:19)
[2017-05-13] MEDS: 0.9% Sodium Chloride 1,000 ML IV SCH (02:25)
[2017-05-13] MEDS: fentaNYL 2,500 mCg/250 mL 2,500 MCG in IV Premix 1 EACH IV SCH (03:29)
[2017-05-13 04:11] LABS: Mean Corpuscular Hemoglobin 33.5 pg (27.0-35.0); Mean Corpuscular Volume 90.1 fL (81-100); Platelet Count 293 bil/L (150-400)
[2017-05-13 04:28] LABS: BASOPHILS % (AUTO) 0 % (0-3); EOSINOPHILS % (AUTO) 2 % (0-5); MONOCYTES % (AUTO) 8 % (4-12); NEUTROPHILS % (AUTO) 89 % (40-74)
--- NOTE | 2017-05-13 04:40 | ABG ---
DateTimeAnalyzed 04:35:00 -_ pH ____7.451 - 7.350 7.450 pCO2 ___35.6__ -mmHg 35.0 45.0 pO2 ___78.6__ -mmHg 69.0 116 HCO3- ___24.4__ -mmol/L 22.0 26.0 ABE ____1.2__ -mmol/L -2.0 2.0 tHb ___12.4__ -g/dL 12.0 18.0 O2Hb ___95.3__ -% COHb ____0.7__ -% 0.0 1.5 MetHb ____0.9__ -% 0.4 1.5 sO2 ___96.9__ -% FIO2 ___60.0__ -% PEEP ___10.0__ -cmH2O Set_RR ___22.0__ -b/min Vt __530.0__ -L Drawn By AF - Date/Time Notified____ 04:40:00 -_ Spontaneous_RR ___22.0__ -b/min Oxygen Device 1 VENTILATOR - B 756 -mmHg tO2 ___16.6__ -Vol% Guzman test _Positive -
[2017-05-13 04:57] LABS: Magnesium 2.1 mg/dL (1.6-2.6); Phosphorus 3.2 mg/dL (2.5-4.9)
--- NOTE | 2017-05-13 06:29 | NUR ---
P) Fever Pt. febrile last night, T max 37.7 orally, lungs coarse and decreased in bases, cardiac rhythm sinus/sinus tach with occasional PVC's. I) Passive cooling, turning q2h and floating heels. Meds per 's orders, close monitoring. E) Resting quietly with eyes closed.
[2017-05-13] MEDS: Famotidine Inj 20 MG in IV Premix 1 EACH IV SCH ×2 (07:47→19:49)
[2017-05-13] MEDS: Cefepime Inj 2,000 MG in Dextrose 5% Minibag Plus 100 ML IV SCH (07:48)
[2017-05-13] MEDS: Azithromycin Inj 500 MG in Dextrose 5% w/Vial Mate 250 ML IV SCH (07:49)
--- NOTE | 2017-05-13 08:04 | DRSVH ---
PROCEDURE: CT ANGIO CHEST PULMONARY EMBOLISM ([id number]) INDICATIONS: 41 year-old woman with hypoxia and ulnar hypertension. TECHNIQUE: After the administration of intravenous contrast, 2 mm thick sections acquired from the pulmonary api cal to the posterior costophrenic angles. 3-dimensional maximum intensity projection (MIP) coronal a nd sagittal reformats were then acquired through the thorax. For radiation dose reduction, the follo wing was used: automated exposure control, adjustment of mA and/or kV according to patient size. COMPARISON: [facility], CR, XR CHEST 1VW (PORTABLE), 05/11/2017, 23:43. [facility], [facility], XR CHEST 1VW (PORTABLE), 05/12/2017, 9:47. [facility], CR, XR CHEST 1VW (PORT ABLE), 05/13/2017, 4:57. FINDINGS: Image quality: Motion artifacts. Pulmonary arteries: Pulmonary arteries are normal in size, and demonstrate no intraluminal filling d efects to suggest central pulmonary embolism. Lungs and pleura: Bilateral reticular nodular infiltrates. There are bibasilar consolidations/atelec tasis.. No pleural effusions or pneumothorax. Central and peripheral airways are patent. Mediastinum: There is an endotracheal tube above the sulma. A nasogastric tube is present with the tip within the stomach. Heart size is normal. There is small pericardial effusion. Slightly enlarged subcarinal lymph node measures 1.3 cm in short axis. Thoracic aorta is normal in caliber and enhanc ement. Esophagus is normal in caliber, without hiatal hernia. Bones and chest wall: No suspicious bony lesions. Ribs and thoracic spine appear intact throughout. Thyroid gland is unremarkable. No axillary or supraclavicular adenopathy. Abdomen: Visualized upper abdominal solid organs appear normal in the early arterial phase of enhan cement. IMPRESSION: 1. The exam is somewhat limited due to motion artifacts. No definitive evidence for acute central pu lmonary embolism. 2. Bilateral reticular nodular infiltrates and bibasilar consolidation/atelectasis. Differential diag noses include inflammatory and infectious etiologies including atypical infections. Recommend clinica l correlation. 3. Small pericardial effusion. 4. Mildly enlarged the seminal lymph node, probably reactive. No significant discrepancy with the caustic cresylate shift superintendent radiology preliminary report. Dictated by: Aisha Hearn M.D. on 05/13/2017 at 7:55 Approved by: Aisha Hearn M.D. on 05/13/2017 at 8:03
--- NOTE | 2017-05-13 08:09 | DRSVH ---
PROCEDURE: X-RAY CHEST ONE VIEW, PORTABLE ([id number]) INDICATIONS: intubated TECHNIQUE: One view of the chest was acquired. COMPARISON: [facility], CR, XR CHEST 1VW (PORTABLE), 05/12/2017, 9:47. FINDINGS: Surgical changes and devices: Stable ETT and enteric tubes. Lungs and pleura: Worsening bibasilar pulmonary opacities. Mediastinum: Mediastinal contours appear normal. Heart size is normal. Bones and chest wall: No suspicious bony lesions. Overlying soft tissues appear unremarkable. IMPRESSION: Worsening bibasilar pulmonary opacities. Stable support devices. Dictated by: Javon Aquino M.D. on 05/13/2017 at 8:06 Approved by: Javon Aquino M.D. on 05/13/2017 at 8:07
[2017-05-13] MEDS ORDERED: Furosemide 10 mg/mL 2 mL Inj IVPUSH ONE (12:15)
--- NOTE | 2017-05-13 13:15 | PROG NOTE ---
[address] [address] PROGRESS NOTE PATIENT: INGRID SOLORIO : 1975 MR#: [id number] ADMIT: 05/12/2017 JOB ID: [id number] DATE: 05/13/2017 PULMONARY CRITICAL CARE PROGRESS NOTE: The patient is a 41-year-old woman admitted with asthma exacerbation and acute respiratory failure. The patient was seen and evaluated with the resident physician, Nikko Frederick DO. Please refer to his separate detailed note for additional information. INTERVAL HISTORY: Remains on the ventilator. No other overnight events. REVIEW OF SYSTEMS: Unable to obtain. PHYSICAL EXAMINATION: Vital signs reviewed. Afebrile. She is on 50% FiO2 and 10 cm of PEEP on the ventilator. General: Intubated, sedated, currently unresponsive. Chest is clear to auscultation. LABORATORIES: Reviewed. WBC trending down to 15 from 17 yesterday. Chemistry is reviewed and normal. Procalcitonin 0.07 and 0.02 yesterday. Cultures, no growth, and respiratory viral PCR is negative. Chest x-ray reviewed shows patchy bilateral infiltrates. Pretty stable compared to yesterday. Arterial blood gas this morning shows pH of 7.45, pCO2 of 35, pO2 of 78, bicarb of 24. ASSESSMENT: 1. Acute hypoxic hypercarbic respiratory failure. 2. Asthma exacerbation. 3. Right lower lobe pneumonitis. 4. Morbid obesity. RECOMMENDATIONS: A 41-year-old woman with longstanding known asthma, morbid obesity with BMI 40, diabetes and hypertension presenting with acute respiratory distress with hypoxic hypercarbic respiratory failure requiring mechanical ventilation since May 12, 2017. From a respiratory standpoint, she seems somewhat improved. Echo yesterday showed no evidence of LV dysfunction but a flattened septum suggesting RV pressure overload, although pressure support not all that high. She had a CT pulmonary angiogram done yesterday emergently because of this finding to rule out PE. There was no evidence of PE on this but she did have bilateral patchy tree-in-bud/interlobular septal thickening. She also had bilateral basilar/dependent infiltrates which could be aspiration. This would be consistent with an atypical infection plus aspiration pneumonitis in the absence of an elevated procalcitonin or white count and other signs of sepsis. At this point, I would recommend stopping the cefepime since there is no evidence of a bacterial pneumonia. I would recommend continuing azithromycin and Solu-Medrol, as well as nebs for her asthma. I went ahead and gave her a dose of Lasix to treat any possible RV failure. She could have obesity hypoventilation syndrome and chronic hypercarbia with right heart failure secondary to that in which case diuresis might help. We will wean her PEEP today as tolerated. She is alkalemic and not overbreathing the vent, so I decreased her respiratory rate as well. If we can get her PEEP to 5 cm, then I would like to do a spontaneous breathing trial but I suspect she would not be ready to be extubated today, and this would more likely happen tomorrow. She is on appropriate DVT and GI prophylaxis. She is a FULL CODE. Critical care time 40 minutes MTDD
--- NOTE | 2017-05-13 14:32 | NUR ---
02 requirements improving, Sa02 to 55% on vent, rate down to 14. Sat up on side of bed with PT today, sedation lightened; increased RR and c/o shortness of breath with activity and less sedation. Advancing TFs towards goal, no residuals aspirated. SR/ST on tele, no ectopy noted. Low-grade temp. Lasix given today, brisk UOP via lamb cath. Supportive here briefly, assisted by MD with work-related paperwork.
--- NOTE | 2017-05-13 15:26 | PCM.PNMED ---
Subjective Date of Service May 13, 2017 Subjective Pulmonary and Critical Care progress note: Hospital day #2: Brief history of present illness: This is a 41 y/o F hx asthma, diabetes, hypertension and morbid obesity who presented in severe respiratory distress. She was subsequently intubated without incident in the emergency department and admitted to the CCU secondary to worsening upper respiratory symptoms for the past several weeks to include productive cough, fever, chills, and shortness of breath, general malaise, decreased appetite, nausea, vomiting and diarrhea. Patient failed outpatient antibiotics for recent diagnosis of pneumonia. Patient has no prior history of hospitalization for asthma exacerbation. The patient reportedly lost approximately 100lbs recently and that her blood pressure improved with this. Need patient was in severe respiratory distress with hypercapnic hypoxemia chest x-ray indicating diffuse initial markings, WBCs 17.0 with left shift and a proBNP of 1200. She was given 10mg IV dexamethasone and nebulized albuterol as well as doses of levofloxacin and cefepime ED. She was sedated and admitted for acute exacerbation of asthma. Overnight: Patient failed pressure support trial yesterday. Overnight patient was tachypneic on the ventilator with a rate of 28, and tachycardic at 125 BPM. Chest x-ray showing worsening bibasilar opacities. CT angio: show no evidence of PE but showing bibasilar consolidation, and small pleural effusion, echo significant for LVEF 65-70% and right ventricular pressure 32 mmHg and a flattened into ventricular septum consistent with elevated right ventricle pressure. Patient's viral PCR, MRSA, and blood cultures have been negative to date. Her sputum culture was scant normal. WBC count 15.2 with left shift of 89%. Repeat ABG showed pH 7.45, PCO2 35.6, PO2 78.6, bicarbonate 24, with Vent on PRBC with peak pressures in the 30s and plateau of 27-28 suggesting obstructive pattern, FiO2 60% with a PEEP of 10, Vt 500, and a rate of 22. Patient currently on this through mycin 500 mg every 24 and cefepime 2 g every 12. Patient is on Solu-Medrol IV. Patient is receiving scheduled DuoNeb therapy every 4 hours, and is sedated on now 100 g, propofol 50 g. Exam Vital Signs Vital Sign - Last Date Time Temp Pulse Resp B/P Pulse Ox O2 Delivery O2 Flow Rate FiO2 05/13/17 12:42 83 130/69 97 50 05/13/17 12:00 37.5 17 Mechanical Ventilator Intake and Output 05/12/17 05/12/17 05/13/17 Cumulative From/Thru 15:00 23:00 07:00 05/11/17 23:39 - 05/13/17 06:27 Intake Total 1859 ml 1683 ml 4770 ml Output Total 705 ml 900 ml 2055 ml Balance 1154 ml 783 ml 2715 ml Intake Oral 0 ml 0 ml IV Total 1559 ml 940 ml 3727 ml Tube Feeding 50 ml 123 ml 173 ml Tube Irrigant 250 ml 620 ml 870 ml Output Urine Total 650 ml 900 ml 1850 ml Gastric Drainage Total 55 ml 205 ml Exam General: Obese young woman, sedated and intubated lying in bed, Cardio: Regular rate and rhythm no murmurs rubs or gallops Respiratory: CTA bilaterally, very mild wheezing heard bilaterally Abdomen: Soft, positive bowel sounds, nondistended, obese Extremities: No edema Psych: Sedated and intubated Neuro: Sedated and intubated Skin: No rash, skin warm and dry, no edema Lab and Diagnostics Result Diagram: 05/13/17 0400 05/13/17 0400 Additional Diagnostics DateTimeAnalyzed 00:22:38 -_ pH ____7.211 - 7.350 7.450 pCO2 ___73.7__ -mmHg 35.0 45.0 pO2 133 -mmHg 69.0 116 HCO3- ___29.5__ -mmol/L 22.0 26.0 ABE ____0.7__ -mmol/L -2.0 2.0 tHb ___14.4__ -g/dL 12.0 18.0 O2Hb ___99.0__ -% COHb ____1.9__ -% 0.0 1.5 MetHb ____0.0__ -% 0.4 1.5 sO2 ___99.1__ -% FIO2 __100.0__ -% PEEP ____5.0__ -cmH2O Set_RR 18 -b/min Vt __530.0__ -L Drawn By AF - Date/Time Notified____ 00:31:00 -_ Spontaneous_RR 18 -b/min Oxygen Device 1 VENTILATOR - Notified By AF - Notified Whom ___DR. GUTHRIE - K+ ____3.8__ -mmol/L 3.5 5.0 tO2 ___19.9__ -Vol% OrderingPhysicianInitials CR - Guzman test _Positive - Assessment & Plan 41 year-old female with a history of asthma, diabetes, hypertension and morbid obesity who presented to the ED via EMS in severe respiratory distress. Subsequently intubated without incident in the emergency department and admitted to the ICU for acute respiratory failure secondary to possible community acquired pneumonia and/or asthma exacerbation. Acute hypoxic respiratory failure. Present on admission. Active. -Patient with improved respiratory status as evidenced by resolution of respiratory acidosis. -Likely secondary to obesity and chronic hypoventilation syndrome, and status asthmaticus due to poor air quality over the last couple of weeks and recent respiratory infection. Other etiologies could include viral/bacterial pneumonia -Patient did poor on her pressure support trial today; we will retry tomorrow -Echo: EF of 65-70%, segments of pulmonary hypertension and right ventricular overload secondary to elevated right ventricular pressures of 32 mmHg and flattening of the ventricular septum. -CT and she will, no evidence of PE, evidence of bibasilar consolidation. Small pleural effusion. Chest x-ray showing worsening bibasilar opacities. -Current Vent settings this morning PRVC mode with Peak pressures in low 30's, Plateau pressure 27, Vt 500, FIO2 of 60% and PEEP of 10 -ABG pH of 7.451 with resolution of respiratory acidosis, PCO2 of 35.6, PO2 of 78.6, HCO3 24 -Continue sedation: Fentanyl, propofol while vent support required. -Plan to Diurese patient for fluid overload today. -Reduce PEEP to goal of 5 as tolerated. -Plan for spontaneous breathing trial as tolerated. Status asthmaticus; present on admission; ongoing -Possibly secondary to poor air quality over the last couple of weeks and recent respiratory infection; evidenced by increased use of her home inhaler. -DuoNeb q4h, albuterol neb q2h -Continue Solu-Medrol IV 125mg Q8h Community-acquired pneumonia. Present on admission. Active. -Unlikely Viral etiology given negative PCR and unlikely bacterial given negative calcitonin, cultures and sputum. Atypical sections etiology versus aspiration pneumonitis still remains possibility in setting of probable asthma exacerbation -Started on cefepime, Levaquin, and vancomycin in ED -Stop Cefepime today secondary to no evidence of bacterial infection given normal Procalcitonin and lack of microbiologic evidence to date. -Continue with azithromycin for now. -Blood cx negative to date -Sputum Cultures scant normal nohemy -Viral PCR negative -CT evidence of bibasilar consolidation with patchy infiltrate and tree-in-bud/ interlobular septal thickening. Hypertension. Present on admission. Active. -Patient's BP reportedly improved with weight loss, ongoing diet/exercise. Not on antihypertensive medication. -BP 178/112 at presentation. Now slightly hypotensive to normotensive. -Continuous cardiac, BP monitoring History of diabetes. Present on admission. Active. -Diet controlled. -Serum glucose 176 -HbA1c 5.9 -SubQ Regular 10units q8hr Morbid obesity. Present on admission. Active. -Reportedly lost over 100lbs recently -BMI 39.8 Pulmonary critical care time of 60 minutes GI Prophylaxis: H2 emelyn VTE Prophylaxis: Sub-Q Heparin (Unfractionated) VTE Mechanical Devices: Intermittant Pneumatic CD Resuscitation Status: CPR: Attempt Resuscitation Attending Statement I have seen and examined this patient with the resident physician. Vital signs , labs, imaging have been reviewed. I agree with the assessment and plan above. Please refer to my separately dictated progress note for any modifications to above. Julia Bunn M.D. Pulmonary and Critical Care medicine Pager [phone] Nikko Frederick DO May 13, 2017 15:26 Julia Bunn MD May 14, 2017 07:29 -Regular 10units q8hr Morbid obesity. Present on admission. Active. -Reportedly lost over 100lbs recently -BMI 39.8 Patient status; currently unknown when patient extubated GI Prophylaxis: H2 emelyn VTE Prophylaxis: Sub-Q Heparin (Unfractionated) VTE Mechanical Devices: Intermittant Pneumatic CD Resuscitation Status: CPR: Attempt Resuscitation Nikko Frederick DO May 13, 2017 15:26
--- NOTE | 2017-05-13 15:35 | NUR ---
Inpatient Wound Nurse Patient seen for Pressure Ulcer Protocol evaluation. Apparently patient was full ambulatory without skin or wound challenges prior to cardiac event. Patient's primary RN stated that no posterior surface wounds have been identified since admission. CWON evaluated heels, elbows, and accessible areas, no bogginess or erythema noted. Primary RN aware that CWON will be alerted if any posterior wounds are observed. Patient is on appropriate mattress, heels floated, patient well-supported, no further, specific wound care needed at this time.
--- NOTE | 2017-05-13 17:45 | PCM.PNMED ---
Subjective Date of Service May 13, 2017 Subjective Overnight patient did well. She was sedated from us the names morning she is waking up and responsive. Her ventilation has been relatively uncomplicated except for a mild alkalosis this morning, likely as a result of overventilation from her baseline. Exam Vital Signs Vital Sign - Last Date Time Temp Pulse Resp B/P Pulse Ox O2 Delivery O2 Flow Rate FiO2 05/13/17 16:23 83 137/79 95 50 05/13/17 16:00 37.5 26 Mechanical Ventilator Intake and Output 05/12/17 05/12/17 05/13/17 Cumulative From/Thru 15:00 23:00 07:00 05/11/17 23:39 - 05/13/17 06:27 Intake Total 1859 ml 1683 ml 4770 ml Output Total 705 ml 900 ml 2055 ml Balance 1154 ml 783 ml 2715 ml Intake Oral 0 ml 0 ml IV Total 1559 ml 940 ml 3727 ml Tube Feeding 50 ml 123 ml 173 ml Tube Irrigant 250 ml 620 ml 870 ml Output Urine Total 650 ml 900 ml 1850 ml Gastric Drainage Total 55 ml 205 ml Exam General: Obese age-appropriate female who is responding to commands Cardio: Regular rate and rhythm no murmurs rubs or gallops Respiratory: CTA bilaterally, very mild wheezing Abdomen: Soft, positive bowel sounds, nondistended, obese Extremities: No edema Psych: Sedated Neuro: Responding to commands, communicating with blinking her eyes Skin: No rash IVs and Medications Medications Reviewed: Medications were reviewed in detail Lab and Diagnostics Result Diagram: 05/13/17 0400 05/13/17 0400 Additional Diagnostics DateTimeAnalyzed 00:22:38 -_ pH ____7.211 - 7.350 7.450 pCO2 ___73.7__ -mmHg 35.0 45.0 pO2 133 -mmHg 69.0 116 HCO3- ___29.5__ -mmol/L 22.0 26.0 ABE ____0.7__ -mmol/L -2.0 2.0 tHb ___14.4__ -g/dL 12.0 18.0 O2Hb ___99.0__ -% COHb ____1.9__ -% 0.0 1.5 MetHb ____0.0__ -% 0.4 1.5 sO2 ___99.1__ -% FIO2 __100.0__ -% PEEP ____5.0__ -cmH2O Set_RR 18 -b/min Vt __530.0__ -L Drawn By AF - Date/Time Notified____ 00:31:00 -_ Spontaneous_RR 18 -b/min Oxygen Device 1 VENTILATOR - Notified By AF - Notified Whom ___DR. GUTHRIE - K+ ____3.8__ -mmol/L 3.5 5.0 tO2 ___19.9__ -Vol% OrderingPhysicianInitials CR - Guzman test _Positive - Assessment & Plan 41 year-old female with a history of asthma, diabetes, hypertension and morbid obesity who presented to the ED via EMS in severe respiratory distress. Subsequently intubated without incident in the emergency department and admitted to the ICU for acute respiratory failure secondary to possible community acquired pneumonia and/or asthma exacerbation. Acute hypoxic respiratory failure. Present on admission. Active. -Likely secondary to status asthmaticus due to poor air quality over the last couple of weeks and recent respiratory infection. Other etiologies could include viral/bacterial pneumonia -Vent to be managed by pulmonary/ICU team -Patient did poor on her pressure support trial today; we will retry tomorrow -Echo: EF of 65-70% with findings consistent for right ventricular overload -See below for causes of respiratory failure -CXR and ABG in a.m. -Spontaneous breathing trial today Status asthmaticus; present on admission; ongoing -due to poor air quality over the last couple of weeks and recent respiratory infection; evidenced by increased use of her home inhaler -Received 10 mg IV of Solu-Medrol in ED -DuoNeb q4h, albuterol neb q2h -Solu-Medrol IV 125mg Q8h -Sedation: Fentanyl, propofol Possible atypical pneumonia versus aspiration pneumonitis. Present on admission. Active. -Viral vs bacterial in setting of probable asthma exacerbation -Started on cefepime, Levaquin, and vancomycin in ED -Stop Cefepime and vancomycin -Continue azithromycin. -Blood and sputum Cultures, urine antigens pending -Viral PCR negative as well as negative pro calcitonin 2 days -Recheck labs in a.m. Hypertension. Present on admission. Active. -Patient's BP reportedly improved with weight loss, ongoing diet/exercise. Not on antihypertensive medication. -BP 178/112 at presentation. Now slightly hypotensive to normotensive. -Continuous cardiac, BP monitoring History of diabetes. Present on admission. Active. -Diet controlled. -Serum glucose 177 -HbA1c pending -Regular 10units q8hr Morbid obesity. Present on admission. Active. -Reportedly lost over 100lbs recently -BMI 39.8 Patient status; likely 2-3 days GI Prophylaxis: H2 emelyn VTE Prophylaxis: Sub-Q Heparin (Unfractionated) VTE Mechanical Devices: Intermittant Pneumatic CD Resuscitation Status: CPR: Attempt Resuscitation Time spent 35 minutes Attending Statement I examined the patient on rounds today, and counseled the at bedside. I agree with the assessment and plan as stated above. Lamin Vazquez DO May 13, 2017 17:43 Sandro Xiong MD May 13, 2017 18:36
[2017-05-14] VITALS (13 sets, daily range): BP systolic 127–151; BP diastolic 69–94; PULSE 93–129; RESP 22–28; O2SAT 94–96
[2017-05-14] MEDS: Heparin 5,000 Unit/mL Inj SUBQ SCH ×3 (00:01→15:45)
[2017-05-14] MEDS: MethylprednisoLONE Sodium Succinate 62.5 mg/mL 2 mL Inj IVPUSH SCH ×3 (00:01→15:45)
[2017-05-14] MEDS: Propofol Inj 1,000,000 MCG in IV Premix 1 EACH IV SCH ×7 (00:05→18:13)
[2017-05-14] MEDS: Albuterol-Ipratropium 3 mL Inhalation Solution NEB SCH ×5 (00:12→20:30)
--- NOTE | 2017-05-14 00:16 | ABG ---
DateTimeAnalyzed 00:05:00 -_ pH ____7.435 - 7.350 7.450 pCO2 ___38.2__ -mmHg 35.0 45.0 pO2 ___79.8__ -mmHg 69.0 116 HCO3- ___25.2__ -mmol/L 22.0 26.0 ABE ____1.5__ -mmol/L -2.0 2.0 tHb ___12.2__ -g/dL 12.0 18.0 O2Hb ___94.3__ -% COHb ____0.8__ -% 0.0 1.5 MetHb ____0.8__ -% 0.4 1.5 sO2 ___95.8__ -% FIO2 ___50.0__ -% PEEP ____5.0__ -cmH2O Set_RR ___14.0__ -b/min Vt __500.0__ -L Drawn By MK - Date/Time Notified____ 00:15:00 -_ Spontaneous_RR ___16.0__ -b/min Oxygen Device 1 VENTILATOR - B 758 -mmHg tO2 ___16.2__ -Vol% Guzman test _Positive -
[2017-05-14] MEDS: Insulin Human NPH 100 Unit/mL 3 mL Inj SUBQ SCH ×2 (00:18→07:49)
--- NOTE | 2017-05-14 00:21 | NUR ---
Verbal order to decrease peep to 5 over the [facility] with sats remaining 85-96%. ABG results show 99% and Po2 of 207. Will decrease the fio2 to 45% and bring peep to 5 Addendum: 05/14/17 at 0026 by RIGO MATTHEW [facility] Error in charting Po2 is 95.8 Will decrease the peep to 5 and leave fio2 at 50%
[2017-05-14] MEDS: 0.9% Sodium Chloride 1,000 ML IV SCH (02:33)
[2017-05-14] MEDS: Chlorhexidine 0.12% 15 mL Oral Solution MT SCH ×6 (04:21→19:45)
[2017-05-14] MEDS: fentaNYL 2,500 mCg/250 mL 2,500 MCG in IV Premix 1 EACH IV SCH (04:23)
--- NOTE | 2017-05-14 05:59 | NUR ---
P) Fever/Respiratory Pt. febrile again tonight, T-max 37.5c orally, Lungs with coarse breath sounds, R>L, and scattered faint crackles in bases. Tolerating tube feeding at trickle rate, no residual. I) Passive cooling, meds per 's orders, turning q2h and floating heels. E) Mostly resting quietly between care, awake and restless much of the night, difficult to sedate for good sleep.
[2017-05-14] MEDS ORDERED: Furosemide 10 mg/mL 2 mL Inj IVPUSH ONE ×2 (07:00→14:00)
[2017-05-14 07:28] LABS: BASOPHILS % (AUTO) 0 % (0-3); EOSINOPHILS % (AUTO) 0 % (0-5); MONOCYTES % (AUTO) 5.6 % (4-12); Mean Corpuscular Hemoglobin 30.7 pg (27.0-35.0); Mean Corpuscular Volume 89.8 fL (81-100); NEUTROPHILS % (AUTO) 88.5 % (40-74); Platelet Count 265 bil/L (150-400)
[2017-05-14] MEDS: Famotidine Inj 20 MG in IV Premix 1 EACH IV SCH ×2 (07:31→19:45)
[2017-05-14] MEDS: Azithromycin Inj 500 MG in Dextrose 5% w/Vial Mate 250 ML IV SCH (07:40)
--- NOTE | 2017-05-14 11:14 | DRSVH ---
PROCEDURE: X-RAY CHEST ONE VIEW, PORTABLE ([id number]) INDICATIONS: Intubated TECHNIQUE: One view of the chest was acquired. COMPARISON: [facility], CR, XR CHEST 1VW (PORTABLE), 05/13/2017, 4:57. FINDINGS: Surgical changes and devices: ET tube with tip 5 CM above the sulma. Enteric tube with tip below the diaphragm. Lungs and pleura: No pleural effusions or pneumothorax. Improving bibasilar pulmonary opacities. Mediastinum: Mediastinal contours appear normal. Heart size is normal. Bones and chest wall: No suspicious bony lesions. Overlying soft tissues appear unremarkable. IMPRESSION: Improving bibasilar pulmonary opacities. Stable support devices. Dictated by: Javon Aquino M.D. on 05/14/2017 at 11:11 Approved by: Javon Aquino M.D. on 05/14/2017 at 11:12
--- NOTE | 2017-05-14 12:27 | PCM.PNMED ---
Subjective Date of Service May 14, 2017 Subjective Pulmonary and Critical Care progress note: Hospital day #3: Brief history of present illness: This is a 41 y/o F hx asthma, diabetes, hypertension and morbid obesity who presented in severe respiratory distress with hypercarbic hypoxemia following several weeks of URI and failed out patient antibiotics for pneumonia. Pt was sedated and intubated. Patient has no prior history of hospitalization for asthma exacerbation. The patient reportedly lost approximately 100lbs recently and that her blood pressure improved with this. CXR indicated diffuse initial markings, WBCs 17.0 with left shift and a proBNP of 1200. She was given high dose solu-medrol iv, Duoneb therapy Q4, and diuresed with improvement in her respiratory status since admission. Chest x-ray showing worsening bibasilar opacities. CT angio : show no evidence of PE but showing bibasilar consolidation, and small pleural effusion, echo significant for LVEF 65-70% and right ventricular pressure 32 mmHg and a flattened into ventricular septum consistent with elevated right ventricle pressure. Patient's viral PCR, MRSA, sputum negative, and blood cultures have been negative to date. Overnight: Patient tachycardic in 105 range with BP 140's/70's, and RR on vent of 22. From a fluid standpoint appears somewhat puffy still per nursing report. I/O patient is still (+) 4 L fluid from admission. Reports of patient having nystagmus from staff. WBC count 15.2 -->11.8 with left shift of 88%. Repeat ABG showed pH 7.435, PCO2 38.2, PO2 79.8, bicarbonate 25.2, with Vent on pressure support FiO2 50% with a PEEP of 5, Vt 500, and a rate of 22. Exam Vital Signs Vital Sign - Last Date Time Temp Pulse Resp B/P Pulse Ox O2 Delivery O2 Flow Rate FiO2 05/14/17 12:05 37.6 116 24 142/94 95 Mechanical Ventilator 50 Intake and Output 05/13/17 05/13/17 05/14/17 Cumulative From/Thru 15:00 23:00 07:00 05/11/17 23:39 - 05/14/17 06:36 Intake Total 2150 ml 2003 ml 8923 ml Output Total 1800 ml 850 ml 4705 ml Balance 350 ml 1153 ml 4218 ml Intake Oral 0 ml IV Total 1220 ml 926 ml 5873 ml Tube Feeding 180 ml 457 ml 810 ml Tube Irrigant 750 ml 620 ml 2240 ml Output Urine Total 1800 ml 850 ml 4500 ml Gastric Drainage Total 0 ml 205 ml # Bowel Movements 0 0 Exam General: Obese young woman, sedated and intubated lying in bed, mucus membranes moist. Cardio: Regular rate and rhythm grade 3/6 systolic murmur, present. no rubs or gallops Respiratory: CTA bilaterally, very mild wheezing heard bilaterally and unchanged from prior exam Abdomen: Soft, positive bowel sounds, nondistended, obese Extremities: No edema Psych: Sedated and intubated Neuro: Sedated and intubated Skin: No rash, skin warm and dry, no edema IVs and Medications Medications Reviewed: Medications were reviewed in detail Lab and Diagnostics Result Diagram: 05/14/1771905/14/17719 Additional Diagnostics DateTimeAnalyzed 00:22:38 -_ pH ____7.211 - 7.350 7.450 pCO2 ___73.7__ -mmHg 35.0 45.0 pO2 133 -mmHg 69.0 116 HCO3- ___29.5__ -mmol/L 22.0 26.0 ABE ____0.7__ -mmol/L -2.0 2.0 tHb ___14.4__ -g/dL 12.0 18.0 O2Hb ___99.0__ -% COHb ____1.9__ -% 0.0 1.5 MetHb ____0.0__ -% 0.4 1.5 sO2 ___99.1__ -% FIO2 __100.0__ -% PEEP ____5.0__ -cmH2O Set_RR 18 -b/min Vt __530.0__ -L Drawn By AF - Date/Time Notified____ 00:31:00 -_ Spontaneous_RR 18 -b/min Oxygen Device 1 VENTILATOR - Notified By AF - Notified Whom ___DR. GUTHRIE - K+ ____3.8__ -mmol/L 3.5 5.0 tO2 ___19.9__ -Vol% OrderingPhysicianInitials CR - Guzman test _Positive - Assessment & Plan 41 year-old female with a history of asthma, diabetes, hypertension and morbid obesity who presented to the ED via EMS in severe respiratory distress. Subsequently intubated without incident in the emergency department and admitted to the ICU for acute respiratory failure secondary to possible community acquired pneumonia and/or asthma exacerbation. Acute hypoxic respiratory failure. Present on admission. Active. -Likely secondary to status asthmaticus due to poor air quality over the last couple of weeks and recent respiratory infection. Other etiologies could include viral/bacterial pneumonia -Vent settings pressure support FIO2 of 50, PEEP 5, Vt 500 -Echo: EF of 65-70% with findings consistent for right ventricular overload -Plan for possible extubation tomorrow -Start IV lasix 20 mg IV BID -CXR today Status asthmaticus; present on admission; ongoing -due to poor air quality over the last couple of weeks and recent respiratory infection; evidenced by increased use of her home inhaler -Received 10 mg IV of Solu-Medrol in ED -DuoNeb q4h scheduled, albuterol neb q2h PRN -Solu-Medrol IV 125mg Q8h -Sedation: Fentanyl 50 mcg, propofol 50 mcg Possible atypical pneumonia versus aspiration pneumonitis. Present on admission. Active. -Viral vs bacterial in setting of probable asthma exacerbation -Received cefepime, Levaquin, and vancomycin in ED -Stop Cefepime and vancomycin, levoquin -Continue azithromycin. -Blood and sputum Cultures negative. -WBC count down from 15 to 11.8 -Viral PCR negative as well as negative pro calcitonin 2 days Nystagmus, not present on admission, active - Patient reported feeling few days of dizziness prior to admission, - CT head non contrast ordered and pending - Will plan for Brain MRI tomorrow s/p extubation pending patients neurologic exam at that time Hypertension. Present on admission. Active. -Patient's BP reportedly improved with weight loss, ongoing diet/exercise. Not on antihypertensive medication. -BP 178/112 at presentation. Now slightly hypotensive to normotensive. -Continuous cardiac, BP monitoring Tachycardia -Hr 105 overnight History of diabetes. Present on admission. Active. - Patient currently on high dose steroid therapy -Diet controlled. -Serum glucose 236 -HbA1c 5.9 -Regular 10units q8hr - Will differ to primary team to adjust insulin Morbid obesity. Present on admission. Active. -Reportedly lost over 100lbs recently -BMI 39.8 Patient status; likely 2-3 days GI Prophylaxis: H2 emelyn VTE Prophylaxis: Sub-Q Heparin (Unfractionated) VTE Mechanical Devices: Intermittant Pneumatic CD Resuscitation Status: CPR: Attempt Resuscitation Attending Statement I have seen and examined this patient with the resident physician. Vital signs , labs, imaging have been reviewed. I agree with the assessment and plan above. Please refer to my separately dictated progress note for any modifications to above. Julia Bunn M.D. Pulmonary and Critical Care medicine Pager [phone] Nikko Frederick DO May 14, 2017 12:27 Julia Bunn MD May 16, 2017 08:11
--- NOTE | 2017-05-14 13:23 | PROG NOTE ---
[address] [address] PROGRESS NOTE PATIENT: INGRID SOLORIO : 1975 MR#: [id number] ADMIT: 05/12/2017 JOB ID: [id number] DATE: 05/14/2017 PULMONARY/CRITICAL CARE PROGRESS NOTE: The patient is a 41-year-old woman with morbid obesity, diabetes, and history of asthma presenting with acute asthma exacerbation and hypoxic hypercarbic respiratory failure. The patient was seen and evaluated with resident physician, Nikko Frederick DO. Please refer to his separate detailed note for additional information. The following is a brief attending note. INTERVAL HISTORY: She tolerated 20 minutes of a spontaneous breathing trial today after which she developed increasing tachypnea and respiratory distress and the trial had to be stopped. REVIEW OF SYSTEMS: Could not be obtained directly from the patient but she has reported some dizziness, blurred vision, generalized weakness, by nodding yes or no. PHYSICAL EXAMINATION: Vital signs reviewed. She is afebrile. She is on 50% FiO2 and 5 cm of PEEP on the ventilator. General: Morbidly obese woman, sitting in bed, nodding in response to questions. She is currently in mild respiratory distress right after finishing physical therapy. Chest: Bilateral coarse breath sounds, crackles/wheezes. LABORATORIES: Reviewed. WBC continues to trend down 11.8 from 15 yesterday. Chest x-ray: Improving bilateral pulmonary infiltrates. Arterial blood gas from this morning shows pH 7.43, pCO2 of 38, pO2 of 79, bicarb 25. ASSESSMENT: 1. Acute hypoxic hypercarbic respiratory failure. 2. Acute asthma exacerbation. 3. Bilateral aspiration pneumonitis. 4. Morbid obesity. RECOMMENDATIONS: A 41-year-old woman with longstanding asthma presenting with weeks of worsening asthma symptoms and hypoxic hypercarbic respiratory failure requiring mechanical ventilation since May 12. She continues to slowly improve, although based on her breathing trial today she is not yet ready for extubation. It was brought to my attention by nursing and physical therapy that she confessed symptoms of vertigo/dizziness, blurred vision, and generalized weakness that began prior to her hospitalization. I would like to get a head CT to rule out any major acute process. If that is fine, then I think we should keep going with the current treatment plan and hopefully extubate her tomorrow and then do a complete neuro examination. If there is abnormality on that neuro exam tomorrow, then we should probably get an MRI to rule out any cerebellar stroke, etc. At this point she is on Solu-Medrol 125 q.8. She has had a chest CT PE protocol to rule out other abnormalities and showed clear evidence of viral/atypical infection with bilateral aspiration pneumonitis. She is also getting scheduled nebs and azithromycin. She is on appropriate DVT and GI prophylaxis. I spoke with her and updated him. TIME: Critical care time is 40 minutes.
--- NOTE | 2017-05-14 13:24 | NUR ---
NUTRITION FOLLOW-UP: Assess: 41 YO F admitted to CCU with respiratory failure, asthma, and pneumonia requiring intubation. Overnight the patient was tachycardic in 105 range with BP 140's/70's, and RR on vent of 22. From a fluid standpoint appears somewhat puffy still per nursing report. I/O patient is still (+) 4 L fluid from admission. Her respiratory status is significantly improved. She is doing well with pressure support trials. Extubation is the potential plan for tomorrow. PMHX: Asthma, Type 2 DM, morbid obesity, HTN, kidney stone. DIET: NPO. ENTERAL FEEDING: Jevity 1.5 rate currently 50 mL/hr, proceeding toward goal rate 60 mL/hr, well tolerated with minimal residuals. LABS: Glu 236, Alb 3.0. MEDICATIONS: Reviewed. Fentanyl, Lasix, Solu-medrol. Propofol rate currently 38.1 mL/hr, providing 1006 lipid kcal. GI: No BM noted. SKIN: No issues noted, per [employer]. ANTHROPOMETRICS: Wt: 125.3 kg, BMI 40.0 kg/m2, Admit wt: 122.2 kg, IBW: 65.9 kg. ESTIMATED NEEDS: BMI/VENT Calories: 5374-6256 kcal/day (20-22 kcal/kg BW) Protein: 99-119 g/day (1.5-1.8 g/kg IBW) Fluids: 2800-5534 ml/day (1 cc/kcal) NUTRITION DIAGNOSIS: 1) Inadequate oral intake related to decreased ability to consume sufficient energy as evidenced to NPO/Vent status - PERSISTS. INTERVENTION: 1) At goal enteral feeding will provide 1980 kcal (TF+Propofol = 2986 kcal), 84 g protein, 1003 ml free fluid; meeting 100% calorie, 85% of protein needs. Per Dr. Bunn, fluid flushes to meet pt's fluid needs as IV fluids to be discontinued. Fluid flushes of 250 ml q 4 hr to provide 2503 ml H20, sufficient to meet pt's fluid needs. Signed orders in chart. 2) In the event patient not extubated tomorrow, will add Prosource liquid protein to better meet pt's protein needs. Recommend 1 packet of Prosource BID to provide a total of 106 g protein; meeting 100% of protein needs. 3) Adjust enteral feeding goal rate based on daily propofol rate. 4) If blood sugars are difficult to control, consider switching to diabetic enteral formula. MONITOR/EVALUATE: NPO/Vent status, labs, enteral feeding tolerance/advance, fluid status, POC, GI/nutrition status. Follow per high nutrition risk guidelines.
--- NOTE | 2017-05-14 14:17 | NUR ---
Social Work: Continued Discharge Planning/Multidisciplinary Rounds D: Pt discussed in multidisciplinary Rounds. Pt remains in CCU on mechanical vent. Pt is being diuresed. FOOT SPECIALIST requested FMLA paperwork be completed today and returned to the patient's spouse. He is very anxious about this. Pt has been alert enough to work with PT and was able to sit at the EOB for 5 min with mod A. Discharge recommendations are pending further clinical status and progression off vent. FOOT SPECIALIST met with the patient's spouse. He inquired about the FMLA paperwork. FOOT SPECIALIST informed him that the resident provider has this paperwork and will return it to him when it is completed. He understands and will await this. He identifies no other needs at this time. A: Pt who is continues to be in CCU on mech vent. P: Evolving; FOOT SPECIALIST to continue to follow pt's clinical progression and discuss discharge needs with providers once identified. CARLOS Sy
[2017-05-14] MEDS ORDERED: Insulin Human NPH 100 Unit/mL Syringe SUBQ SCH (18:00)
--- NOTE | 2017-05-14 18:08 | NUR ---
Note Sedation this morning: propofol at 50mcg/kg/min and fentanyl at 50mcg/h. patient was awake and able to communicate her needs through yes/no questions on this level of sedation. Patient indicated having some degree of upper chest pain with breathing 3-5/10. Fentanyl drip gradually was increased to 120mcg/h and titrated up based on patient response to pain medication. At this level of pain medication patient indicated not having pain but generalized males. Patient communicated having transient vison difficult/disturbances this information was related to the attending MD. After farther investigation patient was having vision changes at home prior to this admitting- DM ordered a follow up T scan of the head today. Ventilator pressure support- sedation decreased proprfol to 30mcg/kg/min and fentanyl to 80mcg/h- patient tolerated PS fairly well initially but after about 45min she became anxious with RR 30-35 and increased heart rate to 130 ranges. Patient indicated having difficulty breathing and trail was stopped. Patient was able to breath easier with ventilator PRVC setting. With oxygen saturation 94-96% on 50% FIO2. RR remained 18-25 and over ventilator set rate of 14 breaths per min.
--- NOTE | 2017-05-14 19:02 | DRSVH ---
PROCEDURE: CT BRAIN WITHOUT CONTRAST ([id number]) INDICATIONS: New Nystagmus in an intubated patient TECHNIQUE: Noncontrast 4.5 mm thick angled axial sections acquired from the foramen magnum to the vertex, with c oronal reformats. COMPARISON: None. FINDINGS: Image quality: Excellent. CSF spaces: Basal cisterns are patent. No extra-axial fluid collections. Ventricles are normal in size and shape. Brain: Hypodensity noted in the inferior aspect of the right cerebellar hemisphere suspicious for carlson bacute infarct. There is local mass effect associated with the right cerebellar hemisphere the lesio n. No intracranial hemorrhage.. Becerril-white matter interface is normal. Skull and face: Calvarium and visualized facial bones are intact, without suspicious lesions. Sinuses: Visualized sinuses and mastoids are clear. IMPRESSION: 1. Probable subacute infarct involving the right cerebellar hemisphere in a right posterior inferior cerebral artery distribution. 2. There is local mass effect associated with probable right cerebellar hemisphere infarct causing m ild deformity of the fourth ventricle and the right margin of the brainstem. Dictated by: Dannielle Owusu MD, PhD on 05/14/2017 at 18:56 Approved by: Dannielle Owusu MD, PhD on 05/14/2017 at 19:00
--- NOTE | 2017-05-14 19:18 | PCM.PNMED ---
Subjective Date of Service May 14, 2017 Subjective The last couple days the patient has made very little progress. There is report from physical therapy today the patient is diffusely weak, to the point that they mention possible Guillain-Singh. She continues to essentially require the same vent settings as yesterday. The patient communicated to staff that previous to her admission she was having symptoms of vertigo and blurry vision. This is concerning in light of her current neurological status. She is being set up for CT tonight, and MRI if extubated tomorrow. Exam Vital Signs Vital Sign - Last Date Time Temp Pulse Resp B/P Pulse Ox O2 Delivery O2 Flow Rate FiO2 05/14/17 17:10 120 23 140/75 95 50 05/14/17 15:32 Ventilator 05/14/17 15:32 37.4 Intake and Output 05/13/17 05/13/17 05/14/17 Cumulative From/Thru 15:00 23:00 07:00 05/11/17 23:39 - 05/14/17 06:36 Intake Total 2150 ml 2003 ml 8923 ml Output Total 1800 ml 850 ml 4705 ml Balance 350 ml 1153 ml 4218 ml Intake Oral 0 ml IV Total 1220 ml 926 ml 5873 ml Tube Feeding 180 ml 457 ml 810 ml Tube Irrigant 750 ml 620 ml 2240 ml Output Urine Total 1800 ml 850 ml 4500 ml Gastric Drainage Total 0 ml 205 ml # Bowel Movements 0 0 Exam General: Obese age-appropriate female who is responding to commands Cardio: Regular rate and rhythm no murmurs rubs or gallops Respiratory: CTA bilaterally, very mild wheezing Abdomen: Soft, positive bowel sounds, nondistended, obese Extremities: No edema Psych: Sedated Neuro: Responding to commands, communicating with blinking her eyes Skin: No rash Eyes: Patients following commands but when asked to focus on my finger to address ocular motors the patient was unable to track past the midline. When moved to the patient's right she would turn her entire head, and when going to the left there is no small nystagmus. There was also no evidence of accommodation. IVs and Medications Medications Reviewed: Medications were reviewed in detail Lab and Diagnostics Result Diagram: 05/14/17 0705/14/17 07 Additional Diagnostics DateTimeAnalyzed 00:22:38 -_ pH ____7.211 - 7.350 7.450 pCO2 ___73.7__ -mmHg 35.0 45.0 pO2 133 -mmHg 69.0 116 HCO3- ___29.5__ -mmol/L 22.0 26.0 ABE ____0.7__ -mmol/L -2.0 2.0 tHb ___14.4__ -g/dL 12.0 18.0 O2Hb ___99.0__ -% COHb ____1.9__ -% 0.0 1.5 MetHb ____0.0__ -% 0.4 1.5 sO2 ___99.1__ -% FIO2 __100.0__ -% PEEP ____5.0__ -cmH2O Set_RR 18 -b/min Vt __530.0__ -L Drawn By AF - Date/Time Notified____ 00:31:00 -_ Spontaneous_RR 18 -b/min Oxygen Device 1 VENTILATOR - Notified By AF - Notified Whom ___DR. GUTHRIE - K+ ____3.8__ -mmol/L 3.5 5.0 tO2 ___19.9__ -Vol% OrderingPhysicianInitials CR - Guzman test _Positive - Assessment & Plan 41 year-old female with a history of asthma, diabetes, hypertension and morbid obesity who presented to the ED via EMS in severe respiratory distress. Subsequently intubated without incident in the emergency department and admitted to the ICU for acute respiratory failure secondary to possible community acquired pneumonia and/or asthma exacerbation. Acute hypoxic respiratory failure. Present on admission. Active. -Likely secondary to status asthmaticus due to poor air quality over the last couple of weeks and recent respiratory infection. Other etiologies could include viral/bacterial pneumonia -Continue vent management by pulmonology team Concern for vertebral artery dissection or other ischemic neurological event, not present on admission, active - Patient reported feeling few days of dizziness prior to admission, - CT head non contrast ordered and pending -Currently feel it is imperative that we obtain a brain MRI whether not the patient was intubated or extubated. We will discuss this with Dr. Bunn is associated big undertaking while the patient is intubated. Status asthmaticus; present on admission; ongoing -due to poor air quality over the last couple of weeks and recent respiratory infection; evidenced by increased use of her home inhaler -Received 10 mg IV of Solu-Medrol in ED -DuoNeb q4h scheduled, albuterol neb q2h PRN -Solu-Medrol IV 125mg Q8h -Sedation: Fentanyl 50 mcg, propofol 50 mcg Possible atypical pneumonia versus aspiration pneumonitis. Present on admission. Active. -Viral vs bacterial in setting of probable asthma exacerbation -Continue azithromycin. -PCR negative Hypertension. Present on admission. Active. -Patient's BP reportedly improved with weight loss, ongoing diet/exercise. Not on antihypertensive medication. -BP 178/112 at presentation. Now slightly hypotensive to normotensive. -Continuous cardiac, BP monitoring Agitation; present on admission; ongoing -With lighten sedation the patient seems to be more agitated with tachycardia and tachypnea -She is also wearing out relatively quickly. -We will continue use propofol to sedate the patient to rest. History of diabetes. Present on admission. Active. -Patient currently on high dose steroid therapy -Diet controlled. -Serum glucose 236 -HbA1c 5.9 -Increased Humulin to 13units q8hr Morbid obesity. Present on admission. Active. -Reportedly lost over 100lbs recently -BMI 39.8 Patient status; likely 2-3 days at minimum GI Prophylaxis: H2 emelyn VTE Prophylaxis: Sub-Q Heparin (Unfractionated) VTE Mechanical Devices: Intermittant Pneumatic CD Resuscitation Status: CPR: Attempt Resuscitation Attending Statement The patient was seen and examined together with on May 14 and I agree with the history, exam findings, and plan as outlined in the note above. I did participate in all aspects of the services provided today, including documentation and the plan of care. We will obtain a CT scan to rule out stroke or other neurologic event this evening. The patient currently has nystagmus to the left as well as inability to gaze to the right past midline. She has no history of stroke or apparent risk factors for stroke. With regards to her asthma at this point given her acute neurologic findings we will plan on continuing mechanical ventilation and sedation. She still has a significant FiO2 need as well. Lamin Vazquez DO May 14, 2017 19:18 Guzman Hart MD May 15, 2017 13:39
[2017-05-15] VITALS (10 sets, daily range): BP systolic 133–148; BP diastolic 72–80; PULSE 76–122; RESP 15–23; O2SAT 94–96
[2017-05-15] MEDS: Heparin 5,000 Unit/mL Inj SUBQ SCH ×2 (00:04→08:21)
[2017-05-15] MEDS: Chlorhexidine 0.12% 15 mL Oral Solution MT SCH ×4 (00:04→11:48)
[2017-05-15] MEDS: MethylprednisoLONE Sodium Succinate 62.5 mg/mL 2 mL Inj IVPUSH SCH ×2 (00:04→08:21)
[2017-05-15] MEDS: Albuterol-Ipratropium 3 mL Inhalation Solution NEB SCH ×3 (00:12→11:51)
[2017-05-15] MEDS ORDERED: Insulin Human NPH 100 Unit/mL Syringe SUBQ SCH ×2 (02:00→08:00)
[2017-05-15] MEDS: 0.9% Sodium Chloride 1,000 ML IV SCH (03:48)
[2017-05-15] MEDS: fentaNYL 2,500 mCg/250 mL 2,500 MCG in IV Premix 1 EACH IV SCH (03:48)
[2017-05-15 04:27] LABS: BASOPHILS % (AUTO) 0.1 % (0-3); EOSINOPHILS % (AUTO) 0 % (0-5); MONOCYTES % (AUTO) 5.4 % (4-12); Mean Corpuscular Hemoglobin 32.5 pg (27.0-35.0); Mean Corpuscular Volume 91.5 fL (81-100); Platelet Count 267 bil/L (150-400)
--- NOTE | 2017-05-15 04:58 | ABG ---
DateTimeAnalyzed 04:48:34 -_ pH ____7.464 - 7.350 7.450 pCO2 ___42.7__ -mmHg 35.0 45.0 pO2 ___65.5__ -mmHg 69.0 116 HCO3- ___30.6__ -mmol/L 22.0 26.0 ABE ____6.2__ -mmol/L -2.0 2.0 tHb ___13.1__ -g/dL 12.0 18.0 O2Hb ___92.6__ -% COHb ____1.7__ -% 0.0 1.5 MetHb ____0.0__ -% 0.4 1.5 sO2 ___94.1__ -% FIO2 ___50.0__ -% PEEP ____5.0__ -cmH2O Set_RR 12 -b/min Vt __500.0__ -L Drawn By MM - Date/Time Notified____ 04:57:00 -_ Oxygen Device 1 VENTILATOR - Notified By MM - K+ ____4.6__ -mmol/L 3.5 5.0 tO2 ___17.1__ -Vol% Guzman test _Positive -
--- NOTE | 2017-05-15 05:55 | NUR ---
P) Respiratory/Cardiac/fever Pt. with low grade temp again tonight, T-max 37.7. Lungs with coarse breath sounds and scattered squeaks, more squeaks on the R than L, decreased in bases bilat. Suctioning small amounts of slightly yellow phlegm from ET tube. cardiac rhythm generally sinus but has has fairly long episode of SVT in the mid to upper 120's, denies pain at this time. Of note, pt. is also on her menses, moderate flow. No BM since admission 4 days ago. I) Passive cooling measures, meds per 's orders, miralax given through OG tube, turning q2h and floating heels. E) Resting quietly, heart rate still 123bpm.
[2017-05-15] MEDS: Propofol Inj 1,000,000 MCG in IV Premix 1 EACH IV SCH ×4 (08:20→14:35)
[2017-05-15] MEDS: Famotidine Inj 20 MG in IV Premix 1 EACH IV SCH (08:22)
[2017-05-15] MEDS: Azithromycin Inj 500 MG in Dextrose 5% w/Vial Mate 250 ML IV SCH (08:22)
--- NOTE | 2017-05-15 08:55 | DRSVH ---
PROCEDURE: X-RAY CHEST ONE VIEW, PORTABLE ([id number]) INDICATIONS: intubated TECHNIQUE: One view of the chest was acquired. COMPARISON: [facility], CR, XR CHEST 1VW (PORTABLE), 05[facility]14/2017, 10:06. [facility] (PORTABLE), 05/13/2017, 4:57. [facility], CR, XR CHEST 1VW (PORT ABLE), 05/12/2017, 9:47. FINDINGS: Surgical changes and devices: Tubes and catheters are in stable and expected positions. Lungs and pleura: No pleural effusions or pneumothorax. Increased moderate patchy right basilar airs pace opacity. Mediastinum: Mediastinal contours appear normal. Heart size is normal. Bones and chest wall: No suspicious bony lesions. Overlying soft tissues appear unremarkable. IMPRESSION: Increased right basilar pneumonia. Continued plain film surveillance is recommended to en sure resolution, and to exclude underlying or central malignancy. Dictated by: Monalisa Melara M.D. on 05/15/2017 at 8:53 Approved by: Monalisa Melara M.D. on 05/15/2017 at 8:54
--- NOTE | 2017-05-15 09:54 | PCM.PNMED ---
Subjective Date of Service May 15, 2017 Subjective Pulmonary and Critical Care progress note: Hospital day #4: Brief history of present illness: This is a 41 y/o F hx asthma, diabetes, hypertension and morbid obesity who presented in severe respiratory distress with hypercarbic hypoxemia following several weeks of URI and failed out patient antibiotics for pneumonia. Pt was sedated and intubated. Patient has no prior history of hospitalization for asthma exacerbation. The patient reportedly lost approximately 100lbs recently and that her blood pressure improved with this. CXR indicated diffuse initial markings, WBCs 17.0 with left shift and a proBNP of 1200. She was given high dose solu-medrol iv, Duoneb therapy Q4, and diuresed with improvement in her respiratory status since admission. Chest x-ray showing worsening bibasilar opacities. CT angio : show no evidence of PE but showing bibasilar consolidation, and small pleural effusion, echo significant for LVEF 65-70% and right ventricular pressure 32 mmHg and a flattened into ventricular septum consistent with elevated right ventricle pressure. Patient's viral PCR, MRSA, sputum negative, and blood cultures have been negative to date. Patient s medicated on Duonebs, albuterol, Azithromycin, and high dose Solumedrol. Overnight: Yesterday hospital staph astutely noticed patient was experiencing neurologic signs to include nystagmus, and clonus. On further inquiry it became apparent the patient had been experiencing episodes of dizzyness, and blurred vision in the days prior to current admission. A non contrast CT of the head was significant for Rt. posterior cerebellar subacute infarct and mass effect on the fourth ventricle. Physical exam this AM was significant for loss of lateral gaze to the right past midline, and a left sided nystagmus. From a respiratory standpoint patient remains on the vent with pressure support after having failied her SBT yesterday secondary to becoming tachypneic and tachycardic. Patient has continued to experience HR from upper 90's to 125 bpm intermittently. Her CXR this morning appears improved over prior. Vent is pressure support with FIO2 50 and PEEP of 8. Her RR has been 22. WBC count 15.2 -->11.8 -->10.9 with left shift of 88%. Repeat ABG showed pH 7.46, PCO2 42.7, PO2 65, bicarbonate 30. Exam Vital Signs Vital Sign - Last Date Time Temp Pulse Resp B/P Pulse Ox O2 Delivery O2 Flow Rate FiO2 05/15/17 07:58 Ventilator 05/15/17 07:58 37.0 122 22 133/80 94 50 Intake and Output 05/14/17 05/14/17 05/15/17 Cumulative From/Thru 15:00 23:00 07:00 05/11/17 23:39 - 05/15/17 06:49 Intake Total 1829 ml 644 ml 33306 ml Output Total 2450 ml 900 ml 8055 ml Balance -621 ml -256 ml 3341 ml Intake Oral 0 ml IV Total 879 ml 644 ml 7396 ml Tube Feeding 450 ml 1260 ml Tube Irrigant 500 ml 2740 ml Output Urine Total 2450 ml 900 ml 7850 ml Gastric Drainage Total 205 ml # Bowel Movements 0 Exam General: Obese young woman, lightly sedated and intubated lying in bed,able to interact during exam, appears anxious Cardio: Tachycardic with regular rhythm grade 3/6 systolic murmur, present. no rubs or gallops Respiratory: CTA bilaterally, wheezing heard bilaterally has resolved, right lung yuen sounding more coarse then left side. Abdomen: Soft, positive bowel sounds, nondistended, obese Extremities: No edema Psych: appears anxious Neuro: Loss of right later gaze, and nystagmus to the left. Able to squeeze hand and symmetric bilaterally, B/L LE muscle strength intact. Skin: No rash, skin warm and dry, no edema IVs and Medications Medications Reviewed: Medications were reviewed in detail Lab and Diagnostics Result Diagram: 05/15/17 0345 05/15/17 0345 Additional Diagnostics DateTimeAnalyzed 00:22:38 -_ pH ____7.211 - 7.350 7.450 pCO2 ___73.7__ -mmHg 35.0 45.0 pO2 133 -mmHg 69.0 116 HCO3- ___29.5__ -mmol/L 22.0 26.0 ABE ____0.7__ -mmol/L -2.0 2.0 tHb ___14.4__ -g/dL 12.0 18.0 O2Hb ___99.0__ -% COHb ____1.9__ -% 0.0 1.5 MetHb ____0.0__ -% 0.4 1.5 sO2 ___99.1__ -% FIO2 __100.0__ -% PEEP ____5.0__ -cmH2O Set_RR 18 -b/min Vt __530.0__ -L Drawn By AF - Date/Time Notified____ 00:31:00 -_ Spontaneous_RR 18 -b/min Oxygen Device 1 VENTILATOR - Notified By AF - Notified Whom ___DR. GUTHRIE - K+ ____3.8__ -mmol/L 3.5 5.0 tO2 ___19.9__ -Vol% OrderingPhysicianInitials CR - Guzman test _Positive - Assessment & Plan 41 year-old female with a history of asthma, diabetes, hypertension and morbid obesity who presented to the ED via EMS in severe respiratory distress. Subsequently intubated without incident in the emergency department and admitted to the ICU for acute respiratory failure secondary to possible community acquired pneumonia and/or asthma exacerbation. Right Subacute Posterior Cerebellar Infarct, likely present prior to admission, active - Patient had been experiencing ballance issues, described blurred vision, and dizziness prior to current admission. It is unclear at this time what effect this stroke may have contributed to the patients poor respiratory status prompting admission. Patient's stroke may have precipitated an aspiration pneumonia that failed out patient treatment resulting in her progressively worsening respiratory status. - Physical exam significant for loss of right later gaze and presence of left sided nystagmus. - CT Head non contrast Rt. posterior cerebellar subacute infarct and mass effect on the fourth ventricle. - Will obtain neuro consult today Dr. Russ Bates, Thank you for your recommendations. - Echo with bubble study today Acute hypoxic respiratory failure. Present on admission. Active. -Likely multifactorial and secondary to Cerebellar infarct, aspiration pneumonitis, hx of asthma and possible status asthmaticus due to poor air quality over the last couple of weeks.Other etiologies could include viral/ bacterial pneumonia -Currently on pressure support vent FIO2 of 50 and PEEP of 8 -Respiratory status non significantly changed from prior day. -Lightly sedated on fentanyl and propofol. -Will not plan to extubate today given uncertainty of cerebellar stroke effect on patients ability to protect her airway and oxygenate. Will wait for neuro consult prior to proceeding with extubation. -Will plan for a prolonged SBT trial prior to extubation when this does occur. Status asthmaticus; present on admission; ongoing -possibly related to poor air quality over the last couple of weeks and recent respiratory infection; evidenced by increased use of her home inhaler -Received 10 mg IV of Solu-Medrol in ED -DuoNeb q4h scheduled, albuterol neb q2h PRN -Continue Solu-Medrol IV 125mg Q8h now day 8 -Sedation: Fentanyl 100 mcg, propofol 30 mcg Atypical pneumonia versus aspiration pneumonitis. Present on admission. Active. -Aspiration picture is becoming more likely etiology given newly diagnosed right posterior cerebellar infarct. -Viral vs bacterial in setting of probable asthma exacerbation -Continue azithromycin. -PCR negative -WBC count is 10.9 today and trending down. -Repeat procalcitonin today and if returns increased will plan to reinitiate cefepime as antibiotic coverage. Hypertension. Present on admission. Active. -Patient's BP reportedly improved with weight loss, ongoing diet/exercise. Not on antihypertensive medication. -BP 148/79 currently -Continuous cardiac, BP monitoring Tachycardia in the setting of and Anxious and Agitated patient; present on admission; ongoing -With light sedation the patient seems to be more agitated with tachycardia and tachypnea -She is also wearing out relatively quickly. -We will continue use propofol to sedate the patient to rest. History of diabetes. Present on admission. Active. -Patient currently on high dose steroid therapy -Diet controlled. -Serum glucose 236 -HbA1c 5.9 -Increased Humulin to 13units q8hr Morbid obesity. Present on admission. Active. -Reportedly lost over 100lbs recently -BMI 39.8 Patient status; likely 2-3 days at minimum GI Prophylaxis: H2 emelyn VTE Prophylaxis: Sub-Q Heparin (Unfractionated) VTE Mechanical Devices: Intermittant Pneumatic CD Resuscitation Status: CPR: Attempt Resuscitation Attending Statement I have seen and examined this patient with the resident physician. Vital signs , labs, imaging have been reviewed. I agree with the assessment and plan above. Please refer to my separately dictated progress note for any modifications to above. Julia Bunn M.D. Pulmonary and Critical Care medicine Pager [phone] Nikko Frederick DO May 15, 2017 09:54 Julia Bunn MD May 16, 2017 08:15
--- NOTE | 2017-05-15 12:18 | DRSVH ---
[facility] [address] [place] [address] Echocardiogram Report Name: INGRID SOLORIO MStudy Date: 05/15/2017 Height: 69 in Hospital Exam Location: [facility] Weight: 27 5 lb Gender: Female BSA: 2.4 m2 : 1975 Age: 41 yrs BP: 144/72 mmHg Reason For Study: CVA Ordering Physician: Arie Hummelist Performed By: Basilio Carranza Referring Physician: BRI MCGINNIS Interpretation Summary Saline contrast was administered from the left arm. Bubbles were seen in the left atrium after 5 beats in the first clip. With valsalva, bubbles were seen in the left atrium after 2 beats. Consider BHUMI to assess interatrial shunting. Procedure: A two-dimensional transthoracic echocardiogram with color flow and Doppler was performed in limited views only. The study quality was technically adequate. A saline contrast injection was performed to assess for cardiac shunting. Comparison is made with the echocardiogram of 05/12/17. The patient was in sinus tachycardia with heart rates between 114-116 bpm during the exam. Atria: Saline contrast was administered from the left arm. Bubbles were seen in the left atrium after 5 beats in the first clip. With valsalva, bubbles were seen in the left atrium after 2 beats. Reading Physician:DESIRAE
--- NOTE | 2017-05-15 13:38 | PROG NOTE ---
[address] [address] PROGRESS NOTE PATIENT: INGRID SOLORIO : 1975 MR#: [id number] ADMIT: 05/12/2017 JOB ID: [id number] DATE: 05/15/2017 PULMONARY CRITICAL CARE PROGRESS NOTE: The patient is a 41-year-old woman with morbid obesity, diabetes, and history of asthma, presenting with acute asthma exacerbation with hypercarbic respiratory failure, now found to have a large right cerebellar stroke. The patient was seen and evaluated with resident physician, Nikko Frederick DO. Please refer to his separate detailed note for additional information. The following is a brief attending note. INTERVAL HISTORY: She underwent a head CT yesterday afternoon which showed a cerebellar infarct. She has not had any other major overnight events and is doing reasonably well on a pressure support trial this morning. REVIEW OF SYSTEMS: Unable to obtain since patient is intubated. PHYSICAL EXAMINATION: Vital signs reviewed. Afebrile. Pulse 96, respirations 18, BP 143/79, sats 95% on 50% FiO2 with 5 cm of PEEP. General: Obese woman lying in bed, but alert, appropriate. Nodding in response to questions and actually trying to write notes. Chest: Clear to auscultation today. LABORATORIES: Reviewed. WBC down to 10.9 from 15.2 a couple of days ago. Chemistry also reviewed. CT of the head from May 14, 2017 shows: "Probable subacute infarct involving the right cerebellar hemisphere in the right posterior inferior cerebral artery distribution. Local mass effect associated with probable right cerebellar hemisphere infarct causing mild deformity of the 4th ventricle and right margin of the brainstem." Arterial blood gas shows pH 7.46, pCO2 of 42, pO2 of 65, bicarb of 30. Echocardiogram done May 15 shows: A limited echo done today to rule out PFO shows bubbles in the left atrium after five beats and with Valsalva bubbles in the left atrium after two beats. This suggests possible interatrial shunting and a BHUMI was recommended. ASSESSMENT: 1. Acute hypoxic hypercarbic respiratory failure on mechanical ventilation since May 11. 2. Acute right cerebellar stroke in posterior inferior cerebral artery distribution. 3. Acute asthma exacerbation. 4. Bilateral aspiration pneumonitis. 5. Morbid obesity. RECOMMENDATIONS: This 41-year-old woman with history of asthma, diabetes, and hypertension is presenting with symptoms of respiratory distress on May 11 and was intubated soon after for an asthma exacerbation. The she has been treated for an asthma exacerbation. since that time and seems to be improving. Yesterday, based on her physical therapy evaluation and observations by the physical therapist as well as the nurse, there were some concerns raised about unexpected weakness, etc. For this reason we did a head CT yesterday's which showed a right cerebellar infarct that was completely unexpected. She is doing very well neurologically and is completely responsive, conversant, and following commands, although weak, more so on the left arm than the right. She is writing notes. We consulted Neurology and Dr. Bates recommended that the patient be transferred to [facility] for better neurologic care and availability of neurosurgery. This process has been initiated. I did speak to her this morning at length and updated him. He is understandably shocked and frustrated. He is not yet aware of the plans for transfer, so we will need to contact him and discuss this with him further. She is still getting Solu-Medrol, which we just decreased today to 125 mg IV daily from 125 mg q.8. Continue nebs and azithromycin. I am going to repeat a procalcitonin because she continues to have right basilar infiltrate on her chest x-ray despite a negative procalcitonin. She is on appropriate DVT and GI prophylaxis. TIME: Critical care time 50 minutes.
--- NOTE | 2017-05-15 14:56 | DRSVH ---
PROCEDURE: CT ANGIO HEAD AND NECK (P) INDICATIONS: cerebellar stroke TECHNIQUE: Pre-contrast 4.5 mm thick sections acquired from the foramen magnum to the vertex. After the adminis tration of intravenous contrast, 1 mm thick sections acquired from the aortic arch through the [place]. Post-contrast 4.5 mm thick sections then re-acquired from the foramen magnum to the vert ex. 3-dimensional dgeeiul-wrejdykjk-xhvhuifska (MIP) and/or volume rendering reformats were acquired of the central intracranial vasculature and neck separately. For radiation dose reduction, the foll owing was used: automated exposure control, adjustment of mA and/or kV according to patient size. COMPARISON: [facility], CT, CT ANGIO CHEST PE, 05/12/2017, 21:49. [facility] , CT, CT BRAIN WO CON, 05/14/2017, 18:34. FINDINGS: Image quality: Diagnostic. BRAIN: Brain: There is no acute intra-axial or extra-axial hemorrhage. No extra-axial fluid collection is i dentified. There is no midline shift or mass effect. The orbits are grossly unremarkable. There continues to be enlargement of the right cerebellum with decreased the decreased density that e xerts mass effect on the 4th ventricle and the adjacent medulla oblongata. This is similar in appear ance to the previous exam. There is no hemorrhagic conversion. No definite additional areas of abno rmal density are appreciated within the brain. No definite enhancement is evident within this region of the cerebellum to suggest a definite mass. No suspicious parenchymal enhancement of the brain is appreciated. The ventricles and cortical sulci are similar to the prior study. Bones: Calvarium and visualized facial bones are grossly intact. The imaged paranasal sinuses and m astoid air cells are clear. HEAD CT ANGIOGRAPHY: Anterior circulation: Intracranial internal carotid arteries are normal in size and flow. The flow within the paired anterior cerebral arteries is normal and symmetric. The flow within the middle cer ebral arteries is normal and symmetric. The anterior communicating artery is seen. No aneurysms are seen. Posterior circulation: Visualized portions of the vertebral arteries demonstrate normal caliber, and join to form a normal appearing basilar artery. Flow within the posterior cerebral arteries is norm al and symmetric. No aneurysms are seen. The right cerebellar (superior, anteroinferior, and tool and die designer ior inferior) arteries are not well seen. Also, the left cerebellar arteries are also not well seen. NECK CT ANGIOGRAPHY: Carotid system: The great vessels demonstrate a conventional anatomy as they arise from the aortic a rch. The origins of the common carotid arteries appear patent. The common carotid arteries demonstr ate normal caliber and courses. The bifurcation regions are both widely patent. The internal caroti d arteries demonstrate normal calibers and courses. Posterior circulation: The origins of the vertebral arteries are patent, but are not well evaluated for stenosis. The more superior extracranial portions of both vertebral arteries also demonstrate no rmal courses and calibers. They join to form a normal appearing basilar artery. Soft tissues: Diffuse tree in bud nodularity is appreciated within in the bilateral imaged lung apice s. An endotracheal tube is seen with the tip positioned just above the level of the sulma. Otherwi se, the imaged portions of the upper chest are unremarkable. The soft tissues of the neck are within normal limits. No loculated fluid collections are appreciated. The submandibular and parotid gland s are within normal limits. The thyroid gland is not enlarged. There is no lymphadenopathy within t he neck. An orogastric tube is seen extending into the stomach. Bones: No suspicious bony lesions. Visualized cervical spine appears normally aligned. Mild to mod erate degenerative changes of the cervical spine are present. There is no acute fracture evident. N o suspicious osseous lesion is evident. Reversal of the normal cervical lordosis is present. IMPRESSION: 1. No aneurysm, occlusion, high-grade stenosis, or dissection involving the carotid or vertebral art eries within the neck or head. 2. The cerebellar arteries are not adequately seen on this examination which may be related to their small size. 3. Large area of low attenuation involving the right cerebellar hemisphere continues to exert mass e ffect on the adjacent structures, including the medulla and the 4th ventricle, not significantly la ged. There is no corresponding enhancement to suggest a focal lesion. An MRI with intravenous contr ast would be helpful for better characterization when indicated. 4. No acute intracranial hemorrhage. 5. Extensive tree in bud nodularity within the lung apices is suspicious for atypical infection. Dictated by: Dimitri Gamboa M.D. on 05/15/2017 at 13:44 Approved by: Dimitri Gamboa M.D. on 05/15/2017 at 13:55
--- NOTE | 2017-05-15 16:04 | PCM.DC.MED ---
Discharge Summary Date of Service May 15, 2017 Dates of Hospitalization Date of Hospital Admission May 12, 2017 at 01:20 Date of Discharge: May 15, 2017 Providers: Admitting Physician: Terry Cruz MD Primary Care Physician: Maulik Attending Physician: Guzman Hart MD Diagnosis at Time of Discharge Diagnosis at Time of Discharge Right cerebellar infarct Acute hypoxic and hypercapnic respiratory failure Procedures XRay, CTs & MRIs CT angiogram is of the brain and neck 1. No aneurysm, occlusion, high-grade stenosis, or dissection involving the carotid or vertebral arteries within the neck or head. 2. The cerebellar arteries are not adequately seen on this examination which may be related to their small size. 3. Large area of low attenuation involving the right cerebellar hemisphere continues to exert mass effect on the adjacent structures, including the medulla and the 4th ventricle, not significantly changed. There is no corresponding enhancement to suggest a focal lesion. An MRI with intravenous contrast would be helpful for better characterization when indicated. 4. No acute intracranial hemorrhage. 5. Extensive tree in bud nodularity within the lung apices is suspicious for atypical infection. Dictated by: Dimitri Gamboa M.D. on 05/15/2017 at 13:44 Cardiac Echo Impression Interpretation Summary Saline contrast was administered from the left arm. Bubbles were seen in the left atrium after 5 beats in the first clip. With valsalva, bubbles were seen in the left atrium after 2 beats. Consider BHUMI to assess interatrial shunting. Other Diagnostics DateTimeAnalyzed 00:22:38 -_ pH ____7.211 - 7.350 7.450 pCO2 ___73.7__ -mmHg 35.0 45.0 pO2 133 -mmHg 69.0 116 HCO3- ___29.5__ -mmol/L 22.0 26.0 ABE ____0.7__ -mmol/L -2.0 2.0 tHb ___14.4__ -g/dL 12.0 18.0 O2Hb ___99.0__ -% COHb ____1.9__ -% 0.0 1.5 MetHb ____0.0__ -% 0.4 1.5 sO2 ___99.1__ -% FIO2 __100.0__ -% PEEP ____5.0__ -cmH2O Set_RR 18 -b/min Vt __530.0__ -L Drawn By AF - Date/Time Notified____ 00:31:00 -_ Spontaneous_RR 18 -b/min Oxygen Device 1 VENTILATOR - Notified By AF - Notified Whom ___DR. GUTHRIE - K+ ____3.8__ -mmol/L 3.5 5.0 tO2 ___19.9__ -Vol% OrderingPhysicianInitials CR - Guzman test _Positive - Brief History ICU Consult Note Patient is a 41 year old female with history of asthma, diabetes, hypertension and morbid obesity who presented with worsening respiratory distress. She had initially been complaining of upper respiratory symptoms for the past 3 weeks including productive cough, fever, chills, and shortness of breath, as well as malaise, anorexia, N/V/D. She was seen as an outpatient and treated with a course of antibiotics, which she completed with no effect. She also reported that she had been using increasing amounts of her albuterol inhaler. Her dyspnea acutely worsened and she was brought to the hospital and found in a tripod position with worsening respiratory status, and was subsequently intubated. Per her , she had never been hospitalized for her asthma in the past and her asthma was usually well-controlled up until 3 weeks ago. She had recently lost about 100 lbs, seemingly intentionally with diet control. She is a never smoker. She was intermittently agitated overnight, requiring boluses of propofol and an increase in the infusion rate. Today she remains sedated and intubated and is unable to provide further history. Hospital Course 41 year-old female with a history of asthma, diabetes, hypertension and morbid obesity who presented to the ED via EMS in severe respiratory distress. Subsequently intubated without incident in the emergency department and admitted to the ICU for acute respiratory failure secondary to possible community acquired pneumonia and/or asthma exacerbation. Patient was tried on a spontaneous breathing trial and showed complete apnea on day 2. Patient was put back on the ventilator settings and sedation went over the next 24 hours. After patient sedation wore off she was able to communicate. Physical therapy evaluated the patient knows clonus in her lower legs bilaterally. There is on exam the patient had nystagmus to the left was unable to track past the midline on the right. There is no apparent evidence of accommodation. Further discussion with the stated that she has been complaining of vertigo prior to admission as well as blurred vision. A CT noncontrast of the brain showed a right cerebellar stroke with mass effect on the george and fourth ventricle. Discussion with Dr. Bates from neurology was obtained and he recommended immediate transfer to neurosurgery at [facility]. CTA of head and neck was performed prior to transfer and demonstrated no dissection of the vertebral artery or other arteries in the study. Echo with bubble study showed some bubbles in the left atrium is. Patient is being transferred to [facility] for the neuro ICU with follow-up by neurosurgery. Problem list is as below Right Subacute Posterior Cerebellar Infarct, likely present prior to admission, active - Patient had been experiencing ballance issues, described blurred vision, and dizziness prior to current admission. It is unclear at this time what effect this stroke may have contributed to the patients poor respiratory status prompting admission. Patient's stroke may have precipitated an aspiration pneumonia that failed out patient treatment resulting in her progressively worsening respiratory status. - Physical exam significant for loss of right later gaze and presence of left sided nystagmus. - CT Head non contrast Rt. posterior cerebellar subacute infarct and mass effect on the fourth ventricle. - Will obtain neuro consult today Dr. Russ Bates, Thank you for your recommendations. - Echo as above - CTA as above Acute hypoxic respiratory failure. Present on admission. Active. -Likely multifactorial and secondary to Cerebellar infarct, aspiration pneumonitis, hx of asthma and possible status asthmaticus due to poor air quality over the last couple of weeks.Other etiologies could include viral/ bacterial pneumonia -Currently on pressure support vent FIO2 of 50 and PEEP of 8 -Respiratory status non significantly changed from prior day. -Lightly sedated on fentanyl and propofol. Possible Status asthmaticus; present on admission; ongoing -possibly related to poor air quality over the last couple of weeks and recent respiratory infection; evidenced by increased use of her home inhaler -Received 10 mg IV of Solu-Medrol in ED -DuoNeb q4h scheduled, albuterol neb q2h PRN -Continue Solu-Medrol IV 125mg Q8h now day 8 -Sedation: Fentanyl 100 mcg, propofol 30 mcg Atypical pneumonia versus aspiration pneumonitis. Present on admission. Active. -Aspiration picture is becoming more likely etiology given newly diagnosed right posterior cerebellar infarct. -Viral vs bacterial in setting of probable asthma exacerbation -Continue azithromycin. -PCR negative -WBC count is 10.9 today and trending down. Hypertension. Present on admission. Active. -Patient's BP reportedly improved with weight loss, ongoing diet/exercise. Not on antihypertensive medication. -BP 148/79 currently -Continuous cardiac, BP monitoring Tachycardia in the setting of and Anxious and Agitated patient; present on admission; ongoing -With light sedation the patient seems to be more agitated with tachycardia and tachypnea -She is also wearing out relatively quickly. -We will continue use propofol to sedate the patient to rest. History of diabetes. Present on admission. Active. -Patient currently on high dose steroid therapy -Diet controlled. -Serum glucose 236 -HbA1c 5.9 -Increased Humulin to 13units q8hr Morbid obesity. Present on admission. Active. -Reportedly lost over 100lbs recently -BMI 39.8 Patient status: Patient transferred to [facility] for neurosurgical evaluation Exam Vital Signs (Last) Date Time Temp Pulse Resp B/P Pulse Ox O2 Delivery O2 Flow Rate FiO2 05/15/17 11:53 100 95 50 05/15/17 11:39 Ventilator 05/15/17 11:39 36.9 18 143/79 Exam General: Obese age-appropriate female who is responding to commands Eyes: Patients following commands but when asked to focus on my finger to address ocular motors the patient was unable to track past the midline. When moved to the patient's right she would turn her entire head, and when going to the left there is no small nystagmus. There was also no evidence of accommodation. Cardio: Regular rate and rhythm no murmurs rubs or gallops Respiratory: CTA bilaterally, very mild wheezing Abdomen: Soft, positive bowel sounds, nondistended, obese Extremities: No edema; Psych: Sedated Neuro: Responding to commands, communicating with blinking her eyes Skin: No rash Test 05/12/17 00:09 05/12/17 03:35 05/13/17 04:00 05/15/17 03:45 Prothrombin Time 11.0sec (8.1-12.5) Prothromb Time International Ratio 1.03ratio Activated Partial Thromboplast Time 26.6sec (22.8-33.0) Troponin T 0.010ug/L (0.0-0.011) Pro-B-Type Natriuretic Peptide 1198pg/mL (0-130) Hemoglobin A1c 5.9% (4.8-5.6) Band Neutrophils % 0% (1-5) Hematology Comments Lactic Acid Level 1.4mmol/L (0.4-2.0) Phosphorus Level 3.2mg/dL (2.5-4.9) Magnesium Level 2.1mg/dL (1.6-2.6) Prealbumin 18mg/dL (20-40) Thyroid Stimulating Hormone (TSH) 0.346uIU/mL (0.450-4.500) White Blood Count 10.9th/mm3 (3.8-10.1) Red Blood Count 3.88mil/mm3 (3.90-5.20) Hemoglobin 12.6g/dL (12.0-15.6) Hematocrit 35.5% (35.0-46.0) Mean Corpuscular Volume 91.5fL (81-100) Mean Corpuscular Hemoglobin 32.5pg (27.0-35.0) Mean Corpuscular Hemoglobin Concent 35.5% (32.0-37.0) Red Cell Distribution Width 15.9% (12.3-15.4) Platelet Count 267bil/L (150-400) Neutrophils (%) (Auto) 88.0% (40-74) Lymphocytes (%) (Auto) 6.0% (14-46) Monocytes (%) (Auto) 5.4% (4-12) Eosinophils (%) (Auto) 0% (0-5) Basophils (%) (Auto) 0.1% (0-3) Sodium Level 141mEq/L (134-144) Potassium Level 4.8mEq/L (3.5-5.2) Chloride Level 103mEq/L (97-108) Carbon Dioxide Level 25mmol/L (18-29) Blood Urea Nitrogen 29mg/dL (6-24) Creatinine 0.56mg/dL (0.57-1.00) Estimat Glomerular Filtration Rate 171mL/min (>59) Glucose Level 236mg/dL (60-99) Calcium Level 8.7mg/dL (8.5-10.1) Total Bilirubin 0.3mg/dL (0.0-1.2) Aspartate Amino Transf (AST/SGOT) 13U/L (0-50) Alanine Aminotransferase (ALT/SGPT) 10U/L (0-32) Alkaline Phosphatase 50U/L (25-150) Total Protein 6.6g/dL (6.4-8.4) Albumin 3.2g/dL (3.4-5.0) Procalcitonin 0.03ng/mL (0.00-0.08) Followup Plan Disposition: Transfer to [facility] for further evaluation and treatment Time spent 60 minutes Attending Statement The patient was seen and examined together with on May 15 and I agree with the history, exam findings, and plan as outlined in the note above. I did participate in all aspects of the services provided today, including documentation and the plan of care. The patient is being transferred to [facility] for possible neurosurgical decompression of the occiput to allow for expansion of her edematous cerebral infarct which is now causing brainstem compression. Lamin Vazquez DO May 15, 2017 16:04 Guzman Hart MD May 16, 2017 14:10
--- NOTE | 2017-05-15 17:59 | NUR ---
Transfer note Patient continue to be responsive to verbal stimulation and was able to indicate her needs. Patient remained cooperative and aware of her condition. She remained on ventilator please see RT documentation for ventilator maintenance/changes. Patient and her were informed this morning about the results of CT head scan from yesterday. consulted with neurology regarding farther care. CT-angio was completed this afternoon and prior to transfer to higher care facility. Patient was transferred to neuro CCU at [facility] today at 1450 in stable condition. Sedation drips propofol and fentanyl were transferred by lighting fixture installer to appropriate tubing at the time of discharge. Report regarding patients care was given at the bedside to transport team and report was called to the receiving RN at [facility] at 1510 today.
[2017-05-16] MEDS ORDERED: MethylprednisoLONE Sodium Succinate 62.5 mg/mL 2 mL Inj IVPUSH SCH (08:30)
== END 2017-05-15 14:45 | disposition short-term general hospital (02) | DRG 208 ==
LOC: SED 23:45 → CCU 05-12 01:20
PROVIDERS: ADMIT Hospitalist; ATTEND Hospitalist
PROC: 5A1945Z Respiratory Ventilation, 24-96 Consecutive Hours (ICD-10-PCS; principal; 2017-05-11)
PROC: 0BH17EZ Insertion of Endotracheal Airway into Trachea, Via Natural or Artificial Opening (ICD-10-PCS; 2017-05-11)
PROC: 4A033R1 Measurement of Arterial Saturation, Peripheral, Percutaneous Approach (ICD-10-PCS; 2017-05-12)
DX: J96.01 Acute respiratory failure with hypoxia (principal); J69.0 Pneumonitis due to inhalation of food and vomit; I63.531 Cerebral infarction due to unspecified occlusion or stenosis of right posterior cerebral artery; Z68.41 Body mass index [BMI] 40.0-44.9, adult; J45.902 Unspecified asthma with status asthmaticus; J45.901 Unspecified asthma with (acute) exacerbation; E66.01 Morbid (severe) obesity due to excess calories; E11.9 Type 2 diabetes mellitus without complications; I10 Essential (primary) hypertension; I27.2 Other secondary pulmonary hypertension; J96.02 Acute respiratory failure with hypercapnia; H55.00 Unspecified nystagmus; R00.0 Tachycardia, unspecified